=== PATIENT | male | born 1955 | race Caucasian/White ===

== ENCOUNTER 2024-06-26 12:58 | Emergency (ER) | payer MEDICARE, OTHER, SELFPAY ==
[2024-06-26 13:05] VITALS: BP 129/100
--- NOTE | 2024-06-26 13:06 | ED.GENMED ---
ED Provider Triage
<Johanna Blount QUALITATIVE RESEARCHER - Last Filed: 06/26/24 13:14>
-
Patient seen by provider in Triage?: Seen in Triage
Attestation: A medical screening examination has been initiated by a qualified medical provider. Based on the assessment performed at this time, it has been determined that an emergent medical condition may exist and the patient has been informed
that further medical evaluation and possible additional diagnostic testing may be needed.
HPI: 69-year-old male with history of high blood pressure, stage III kidney disease, CAD, IDDM, CABG, pectoral flap, pulmonary fibrosis, carotid endarterectomy, presents now for for abdominal pain, diarrhea. abdominal pain started approximately 10
days ago and the diarrhea started shortly after has had 3-5 episodes of diarrhea daily until yesterday which was only 1 or 2 and today he has had no diarrhea so far. Had a formed bowel movement today, no belly pain at this moment.
States 'this is the best I've felt.'
Travelled to [place] 06/03-06/13. No known sick contacts.
Denies fever/chills.
For a self diagnosed L 5th finger infection, started Augmentin 500 mg BID for 4 days last dose 06/21.
GENERAL: Alert , in no apparent distress
EYE: No visual abnormalities.
NECK: Trachea midline
ENT: No visible abnormalities.
LUNGS: No acute respiratory distress
NEUROLOGICAL: Alert and oriented
SKIN: Skin intact. No visible changes.
MUSCULOSKELETAL: Moving extremities normally
PSYCH: Normal and appropriate interaction.
This is a medical evaluation conducted in person to initiate diagnostic evaluation and provide initial therapeutics. Please see further documentation by the treating clinician.
History of Present Illness
<Johanna Blount QUALITATIVE RESEARCHER - Last Filed: 06/26/24 13:14>
General
Chief Complaint: Abdominal Pain
Time Seen by Provider: 06/26/24 14:45
<Juliano Catherine DO - Last Filed: 12/16/24 17:31>
General
Source: patient, records and spouse
Exam Limitations: none
Nursing documentation reviewed up to this point in time: agreed with
History of Present Illness
History of Present Illness:
Patient is a 69-year-old male who presents to the emergency department complaining of 2 weeks of lower abdominal pain with liquidy diarrhea 3-4 times a day. No blood or mucus. Patient was on Augmentin for few days but this was after the diarrhea
had started. Patient states today the pain is less and had a formed stool today. Patient went to urgent care and was found to have an elevated white count as well as a BUN and creatinine . Patient was then sent to the emergency department.
Patient states he actually has no pain now and is feeling better. Patient was on antibiotics after the symptoms started 2 weeks ago for redness in the finger. Patient is diabetic and his sugars have been running normal. Patient denies any nausea
or vomiting. Patient denies any symptoms. Patient denies any chest pain, shortness of breath or palpitations. Patient denies any upper respiratory type symptoms.
Past History
<Johanna Blount QUALITATIVE RESEARCHER - Last Filed: 06/26/24 13:14>
Past History
ED Past Medical History: CAD, HTN, NIDDM, Renal failure and Other (covid)
ED Past Surgical History: None, Cardiac and Orthopedic
Social History
Tobacco: Former smoker
Alcohol: Occasional
Drug: None
Personal:
Living: with family
Employment: Disabled
Family History
Family History: Diabetes
Review of Systems
<Juliano Catherine DO - Last Filed: 06/26/24 17:31>
Review of Systems
All Other Systems: ROS reviewed and negative except as documented in HPI and ROS
Constitutional: Reports no symptoms
EENT: Reports no symptoms
Respiratory: Reports no symptoms
Cardiac: Reports no symptoms
ABD/GI: Reports abdominal pain and diarrhea; Denies nausea, vomiting, bloody stools or black stools
: Reports no symptoms
Musculoskeletal: Reports no symptoms
Skin: Reports no symptoms
Neurological: Reports no symptoms
Hematologic/Lymphatic: Reports no symptoms
Psychiatric: Reports no symptoms
Phy Exam
<Juliano Catherine DO - Last Filed: 06/26/24 17:31>
Physical Exam
Physical Exam:
Physical Exam
General: No apparent distress, alert and appropriate, well nourished, well hydrated
HENT: Normocephalic, supple with no lymphadenopathy, no thyromegaly
Eyes: Clear sclera, conjuctiva without injection
Heart: Regular rhythm and rate. No S3, S4. No murmur. No NVD
Lungs: No respiratory distress, no stridor, lung sounds clear and equal bilaterally
Abdomen: Soft, minimal lower abdominal tenderness without guarding or rebound, no organomegaly, no CVA tenderness, BS good
Neuro: Alert and oriented x 3, CN II - XII intact, no motor focality, no cerebellar dysfunction
Skin: no rash
Psychiatric: well kept. interactive and cooperative
Extremities: No edema, cyanosis, tenderness, Good and equal peripheral pulses.
Scores
<Juliano Catherine DO - Last Filed: 06/26/24 17:31>
Heart Failure Risk
Heart Failure Risk Score: Not Applicable
Heart Score for Chest Pain Patients
STEMI patient?: Not applicable
Withdrawal Assessment of Alcohol
Withdrawal Assessment Completed?: Not applicable
Course
<Johanna Blount, QUALITATIVE RESEARCHER - Last Filed: 06/26/24 13:14>
Orders/Labs/Results
Orders:
Orders
06/26/24 13:11
Norovirus by PCR Urgent
[facility] Source: Feces/Stool
Specimen Description:
STOOL [C difficile Antigen & Toxins] Urgent
[facility] Source: Feces/Stool
Specimen Description:
Stool Culture Urgent
[facility]KA Source: Feces/Stool
Specimen Description:
06/26/24 13:19
Complete Blood Count/With Diff Urgent
Comprehensive Metabolic Panel Urgent
Lipase Urgent
06/26/24 15:13
CT Abd/pel Without Iv Or Oral Urgent
Comment:
Reason For Exam: renal insufficiency BMI >30 lower abd pain with di
0.9% Sodium Chloride 1000 ml [Nss] 1,000 ml IV BOLUS
Abnormal Lab Results
06/26/24
13:19
WBC 15.2 H 10^3/uL
(4.8-10.8)
MCHC 32.9 L g/dL
(33.0-37.0)
RDW 15.5 H %
(11.5-14.5)
Abs Immat Gran (auto) 0.2 H 10^3/uL
(0-0.05)
Absolute Neuts (auto) 8.8 H 10^3/uL
(1.4-6.5)
Absolute Monos (auto) 0.9 H 10^3/uL
(0.1-0.6)
Absolute Eos (auto) 3.2 H 10^3/uL
(0-0.7)
Immature Gran % 1.4 H %
(0-0.5)
Lymphocytes % 13.3 L %
(20.5-51.1)
Eosinophils % 20.9 H %
(0-6)
Carbon Dioxide 21 L mmol/L
(22-30)
BUN 53 H mg/dl
(9-20)
Creatinine 3.8 H mg/dL
(0.7-1.3)
Glucose 106 H mg/dl
(70-99)
06/26/24 13:19
06/26/24 13:19
Vital Signs
Initial and Last Documented VS:
Initial Vital Signs
Temp Pulse Resp BP Pulse Ox
98.5 F 94 18 129/100 99
06/26/24 13:05 06/26/24 13:05 06/26/24 13:05 06/26/24 13:05 06/26/24 13:05
Last Documented Vital Signs
Temp Pulse Resp BP Pulse Ox
98.5 F 94 18 106/75 100
06/26/24 13:05 06/26/24 13:05 06/26/24 13:05 06/26/24 15:16 06/26/24 16:00
<Juliano Catherine, DO - Last Filed: 06/26/24 17:31>
Orders/Labs/Results
Orders:
Orders
06/26/24 13:11
Norovirus by PCR Urgent
[facility] Source: Feces/Stool
Specimen Description:
STOOL [C difficile Antigen & Toxins] Urgent
[facility]KA Source: Feces/Stool
Specimen Description:
Stool Culture Urgent
TIKA Source: Feces/Stool
Specimen Description:
06/26/24 13:19
Complete Blood Count/With Diff Urgent
Comprehensive Metabolic Panel Urgent
Lipase Urgent
06/26/24 15:13
CT Abd/pel Without Iv Or Oral Urgent
Comment:
Reason For Exam: renal insufficiency BMI >30 lower abd pain with di
0.9% Sodium Chloride 1000 ml [Nss] 1,000 ml IV BOLUS
Abnormal Lab Results
06/26/24
13:19
WBC 15.2 H 10^3/uL
(4.8-10.8)
MCHC 32.9 L g/dL
(33.0-37.0)
RDW 15.5 H %
(11.5-14.5)
Abs Immat Gran (auto) 0.2 H 10^3/uL
(0-0.05)
Absolute Neuts (auto) 8.8 H 10^3/uL
(1.4-6.5)
Absolute Monos (auto) 0.9 H 10^3/uL
(0.1-0.6)
Absolute Eos (auto) 3.2 H 10^3/uL
(0-0.7)
Immature Gran % 1.4 H %
(0-0.5)
Lymphocytes % 13.3 L %
(20.5-51.1)
Eosinophils % 20.9 H %
(0-6)
Carbon Dioxide 21 L mmol/L
(22-30)
BUN 53 H mg/dl
(9-20)
Creatinine 3.8 H mg/dL
(0.7-1.3)
Glucose 106 H mg/dl
(70-99)
06/26/24 13:19
06/26/24 13:19
Vital Signs
Initial and Last Documented VS:
Initial Vital Signs
Temp Pulse Resp BP Pulse Ox
98.5 F 94 18 129/100 99
06/26/24 13:05 06/26/24 13:05 06/26/24 13:05 06/26/24 13:05 06/26/24 13:05
Last Documented Vital Signs
Temp Pulse Resp BP Pulse Ox
98.5 F 94 18 106/75 100
06/26/24 13:05 06/26/24 13:05 06/26/24 13:05 06/26/24 15:16 06/26/24 16:00
<Juliano Catherine, DO - Last Filed: 06/26/24 17:31>
*Radiology
Radiology exam reviewed: radiology read reviewed
*Pulse Oximetry
Patient hypoxic: no
*EKG
Interpreted by ED Provider?: NA
*Honing Machine Set Up Operator Interpretation
Rate: Honing Machine Set Up Operator- N/A
*Critical Care Note
Total Time (30-74mins, 75-104mins- exclusive of procedures): Not Applicable
ED Attending Note
<Johanna Blount QUALITATIVE RESEARCHER - Last Filed: 06/26/24 13:14>
-
Portions of this chart may have been created with voice recognition software.� Occasional wrong word or��sound alike� substitutions may have occurred due to the inherent limitations of voice recognition software.
Discharge Plan
Departure
Patient Disposition: Home (Routine Discharge)
Date of Disposition: 06/26/24
Time of Disposition: 17:30
Patient with high blood pressure during this ER visit?: No
Condition: Good
Covid-19: Not Applicable
Discharge Problem:
Acute diarrhea
Instructions: Diarrhea in teens and adults, [place] diet
Prescriptions:
No Action
furosemide 40 mg tablet
40 mg PO BID
promethazine-DM 6.25-15 mg/5 mL syrup
5 ml PO QID PRN (Reason: cough)
carvedilol 25 mg tablet
25 mg PO BID
amlodipine 5 mg tablet
5 mg PO DAILY
ferrous sulfate 325 mg (65 mg iron) tablet
325 mg PO BID
metformin 1,000 mg tablet
1,000 mg PO HS
losartan 25 mg tablet
25 mg PO DAILY
gabapentin 100 mg capsule
300 mg PO HS
melatonin 3 mg tablet
3 mg PO HS
pantoprazole 40 mg tablet,delayed release (DR/EC)
40 mg PO HS
ezetimibe 10 mg tablet
10 mg PO HS
insulin aspart U-100 [Novolog FlexPen U-100 Insulin] 100 unit/mL (3 mL) insulin pen
35 unit SC AC
cholecalciferol (vitamin D3) 25 mcg (1,000 unit) tablet
1,000 units PO DAILY
multivitamin with folic acid [Tab-A-Blanquita] 400 mcg tablet
1 tab PO DAILY
doxycycline hyclate 100 mg Capsule
100 mg PO Q12 3 Days Qty: 6 0RF
guaifenesin 600 mg Tablet Extended Release 12hr
600 mg PO Q12 5 Days Qty: 10 0RF
cefdinir 300 mg capsule
300 mg PO Q12H Qty: 6 0RF
sodium bicarbonate 650 mg tablet
650 mg PO BID Qty: 10 0RF
insulin glargine U-300 conc 300 unit/mL (3 mL) Insulin Pen
20 - 30 unit SC HS
aspirin 81 mg Tablet,Delayed Release (Dr/Ec)
81 mg PO DAILY Qty: 30 0RF
rosuvastatin 40 mg Tablet
40 mg PO HS Qty: 30 0RF
Spiriva Respimat 2.5 mcg/actuation Mist
2 puff inhalation R DAILY Qty: 1 0RF
Referrals:
Adeola Almeida MD [Family Provider] - Follow up in 5-7 days
Activity Restrictions/Additional Instructions:
Make sure to drink plenty of fluids. Continue present medications and therapy.
Interventions
Interventions:
*Risk Screen - Suicide Last Done: 06/26/24 13:05
*General Assessment Last Done: 06/26/24 13:05
*Neglect/Abuse Screening Last Done: 06/26/24 13:05
*ED COVID-19 Vaccine History Last Done: 06/26/24 15:13
IB-Magngc-Ohebruhvwn Assessment Last Done: 06/26/24 15:21
Discharge Date and Time
Print Language: TAJIK
[2024-06-26 13:38] LABS: Hematocrit 42.8 % (39.0-52.0); Hemoglobin 14.1 g/dL (13.0-18.0); Mean Corp Hgb Conc. 32.9 g/dL (33.0-37.0); Mean Corpuscular Hgb 29.1 pg (27.0-31.0); Mean Corpuscular Volume 88.2 fL (80.0-94.0); Mean Platelet Volume 9.6 fL (7.4-10.4); Platelet Count 311 10^3/uL (130-400); Red Blood Cell Count 4.85 10^6/uL (4.70-6.10); Red Cell Dist. Width 15.5 % (11.5-14.5); White Blood Cell Count 15.2 10^3/uL (4.8-10.8)
[2024-06-26 13:44] LABS: ALT (SGPT) 15 U/L (0-50); AST (SGOT) 21 U/L (17-59); Alkaline Phosphatase 73 U/L (38-126); Blood Urea Nitrogen 53 mg/dl (9-20); Calcium 9.5 mg/dl (8.4-10.2); Carbon Dioxide 21 mmol/L (22-30); Chloride 107 mmol/L (98-107); Glucose 106 mg/dl (70-99); Lipase 76 U/L (23-300); Sodium 140 mmol/L (135-145); Total Bilirubin 0.2 mg/dl (0.2-1.3); Total Protein 6.6 g/dl (6.3-8.2); eGFR 16.42
[2024-06-26 14:16] LABS: % Basophils 0.5 % (0-2); % Eosinophils 20.9 % (0-6); % Immature Granulocytes 1.4 % (0-0.5); % Lymphocytes 13.3 % (20.5-51.1); % Monocytes 6.2 % (1.7-9.3); % Neutrophils 57.7 % (42.2-75.2); Absolute Basophils 0.1 10^3/uL (0-0.2); Absolute Eosinophils 3.2 10^3/uL (0-0.7); Absolute Immature Granulocytes 0.2 10^3/uL (0-0.05); Absolute Monocytes 0.9 10^3/uL (0.1-0.6); Absolute Neutrophils 8.8 10^3/uL (1.4-6.5); Nucleated Red Blood Cells % 0 % (-)
[2024-06-26 15:16] VITALS: BP 106/75
[2024-06-26] MEDS: NSS 1000 IV (15:22)
== END 2024-06-26 17:44 | disposition home or self-care (01) ==
LOC: EMR 12:58
PROVIDERS: Registered Nurse; EMERGENCY PHYSICIAN Emergency Medicine; FAMILY PHYSICIAN Family Medicine
DX: R19.7 Diarrhea, unspecified (principal); I12.9 Hypertensive chronic kidney disease with stage 1 through stage 4 chronic kidney disease, or unspecified chronic kidney disease; E11.9 Type 2 diabetes mellitus without complications; I25.10 Atherosclerotic heart disease of native coronary artery without angina pectoris; N18.30 Chronic kidney disease, stage 3 unspecified; Z87.891 Personal history of nicotine dependence
CPT/HCPCS: 99284; 96360; 74176; 80053; 83690; 85025

== ENCOUNTER 2024-07-12 03:55 | Inpatient (IN) | payer MEDICARE, OTHER, SELFPAY ==
[2024-07-11 22:50] VITALS: BP 130/90
[2024-07-11 23:03] VITALS: BP 179/78
[2024-07-11 23:19] VITALS: BMI 33.1
[2024-07-11 23:48] VITALS: BP 183/85
[2024-07-11] MEDS: LOW STRENGTH ASPIRIN 324 MG PO (23:52)
[2024-07-11] MEDS: ZOFRAN 4 MG IV (23:52)
[2024-07-11 23:59] LABS: Glucose - Point of Care 213 mg/dl (70-99)
[2024-07-12] VITALS (14 sets, daily range): BP systolic 141–187; BP diastolic 52–95; BMI 33.4
[2024-07-12 00:09] LABS: % Basophils 1.5 % (0-2); % Eosinophils 14.3 % (0-6); % Immature Granulocytes 0.3 % (0-0.5); % Lymphocytes 17.6 % (20.5-51.1); % Monocytes 8.4 % (1.7-9.3); % Neutrophils 57.9 % (42.2-75.2); Absolute Basophils 0.1 10^3/uL (0-0.2); Absolute Eosinophils 1.1 10^3/uL (0-0.7); Absolute Lymphocytes 1.3 10^3/uL (1.2-3.4); Absolute Monocytes 0.6 10^3/uL (0.1-0.6); Absolute Neutrophils 4.3 10^3/uL (1.4-6.5); Hematocrit 41.1 % (39.0-52.0); Hemoglobin 13.5 g/dL (13.0-18.0); Mean Corp Hgb Conc. 32.8 g/dL (33.0-37.0); Mean Corpuscular Hgb 29.2 pg (27.0-31.0); Mean Platelet Volume 9.8 fL (7.4-10.4); Nucleated Red Blood Cells % 0 % (-); Platelet Count 284 10^3/uL (130-400); Red Blood Cell Count 4.62 10^6/uL (4.70-6.10); Red Cell Dist. Width 15.1 % (11.5-14.5); White Blood Cell Count 7.4 10^3/uL (4.8-10.8)
[2024-07-12 00:24] LABS: INR 0.94
[2024-07-12 00:25] LABS: APTT 32.4 Sec (23.4-35.0)
[2024-07-12 00:26] LABS: ALT (SGPT) 19 U/L (0-50); AST (SGOT) 31 U/L (17-59); Albumin 4.2 g/dl (3.5-5.0); Alkaline Phosphatase 72 U/L (38-126); Blood Urea Nitrogen 40 mg/dl (9-20); Calcium 9.4 mg/dl (8.4-10.2); Carbon Dioxide 19 mmol/L (22-30); Chloride 107 mmol/L (98-107); Estimated Creatinine Clearance 31 ml/min; Glucose 247 mg/dl (70-99); Potassium 4.5 mmol/L (3.5-5.1); Sodium 139 mmol/L (135-145); Total Bilirubin 0.3 mg/dl (0.2-1.3); Total Protein 6.9 g/dl (6.3-8.2); eGFR 27.13
[2024-07-12 00:37] LABS: NT-proBNP 1110 pg/ml; Troponin I 0.023 ng/ml
--- NOTE | 2024-07-12 00:42 | ED.GENMED ---
History of Present Illness
General
Chief Complaint: Chest Pain
Time Seen by Provider: 07/11/24 23:18
History of Present Illness
History of Present Illness:
69-year-old male with history of CAD status post stenting and CABG, chronic kidney disease, interstitial fibrosis, CHF, hypertension, hyperlipidemia, diabetes presenting for acute onset of chest pain and difficulty breathing. Patient reports
symptoms started prior to arrival, midsternal with associated nausea. Does feel like his symptoms are similar to prior cardiac events. Reports that last cardiac event was about 2 and half years ago. He takes aspirin, no Plavix or Brilinta.
Reports that he had decreased p.o. intake today, did not want to eat prior to arrival because he was not feeling well. Denies weakness or numbness to his extremities. Denies additional acute medical complaints
Past History
Past History
ED Past Medical History: CAD, HTN, NIDDM, Renal failure and Other (covid)
ED Past Surgical History: None, Cardiac and Orthopedic
Social History
Tobacco: Former smoker
Alcohol: Occasional
Drug: None
Personal:
Living: with family
Employment: Disabled
Family History
Family History: Diabetes
Phy Exam
Physical Exam
Physical Exam:
General: Uncomfortable in appearance
HEENT: protecting airway
Neck: appears supple
CV: Normal heart rate, regular rhythm
Resp: No accessory muscle use, no increased work of breathing, lungs clear to auscultation bilaterally
Abd: Soft and non-distended, no tenderness to palpation
Extremities: No deformities, no swelling, no erythema
Neuro: alert, no focal neurologic deficit
: deferred
Rectal: deferred
Psych: Normal affect
Skin: Intact
Scores
Heart Score for Chest Pain Patients
STEMI patient?: No
History: Highly Suspicious
ECG: Nonspecific Repolarization
Age: >/= 65 years
Risk Factors: >/= 3 Risk Factors or History of CAD
Troponin: </= Normal Limit
Heart Score for Chest Pain Patients: 7
Heart Score Risk: 72.7 % MACE over next 6 weeks
Course
Orders/Labs/Results
Orders:
Orders
07/11/24 22:46
ECG [Electrocardiogram (*1)] Urgent
Reason for Study: Chest Pain
EKG- Treatment ONCE
07/11/24 23:28
Electrocardiogram (*1) Stat
Reason for Study: Other
Other Reason for Exam: chest pain
EKG- Treatment ONCE
Aspirin Chewable [Low Strength Aspirin] 324 mg PO NOW STA
Nitroglycerin Sublingual [Nitrostat (Sublingual)] 0.4 mg SL [id number] PRN
07/11/24 23:34
Ondansetron Injectable [Zofran] 4 mg IV NOW STA
07/11/24 23:48
Complete Blood Count/With Diff Urgent
Comprehensive Metabolic Panel Urgent
NT-proBNP Urgent
PTT Urgent
Prothrombin Time Urgent
Troponin I Q3H
07/12/24 00:00
CR Chest - 2 Views Urgent
Reason For Exam: cp, sob
07/12/24 00:46
Morphine Sulfate 4 mg IV NOW STA
07/12/24 00:59
Troponin I Q3H
07/12/24 01:01
US Abdomen Complete/Upper Urgent
Reason For Exam: chest pain/epigastric pain, hx stones
07/12/24 01:03
Famotidine [Pepcid] 20 mg IV NOW STA
07/12/24 01:04
Ondansetron Injectable [Zofran] 4 mg IV NOW STA
07/12/24 01:44
Heparin 4,000 units IV NOW STA
Nursing to Place Non Medication Order As Directed
Physician Order: PTT 6 hours after initial start of Heparin infusion
Above order entered?: Yes
07/12/24 02:56
Morphine Sulfate 2 mg IV NOW STA
07/12/24 03:00
Heparin 22644 Units/250 ml 25,000 units in 250 ml IV PER PROTOCOL
Weight to be used for heparin protocol in kilograms (kg):: 95.9
Protocol:: Cardiac Tx/Acute Coronary
PTT Goal Range to be used:: PTT 73 to 111 seconds
Order type:: Initial
INITIAL Infusion Dose (UNITS/KG/hr) & then follow protocol:: 12 units/kg/hr
Infusion Dose in UNITS/hr & then follow protocol (UNITS/hr):: 1,000
INFUSION RATE in mL/hr & then follow protocol (mL/hr):: 10
PTT less than or equal to 64 seconds:: Increase rate by 200 units/hr (+ 2 mL/hr)
PTT 64.1 to 72.9 seconds:: Increase rate by 100 units/hr (+ 1 mL/hr)
PTT 73 to 111 seconds:: Target Range. No change in rate.
PTT 111.1 to 130.9 seconds:: Decrease rate by 100 units/hr (- 1 mL/hr)
PTT 131 to 199.9 seconds:: HOLD for 1 hr. Then decrease rate by 200 units/hr (- 2 mL/hr)
PTT greater than or equal to 200 seconds:: HOLD for 2 hrs & Notify Provider. Then decrease by 200 units/hr (-
2 mL/hr)
Lab follow-up:: Each change, PTT q6h until 2 consecutive are therapeutic. Then PTT
daily.
07/12/24 03:09
Lactic Acid Urgent
07/12/24 03:32
Admit/Transfer Patient As Directed
Co-Sign Provider:
Level of Care: Inpatient admission
Assign to:: Telemetry
Physician / Group: Deshaun
Diagnosis: Abd Pain, ACS
Reason for Telemetry: Chest Pain syndromes
Date to Stop Telemetry: 07/14/24
Time to Stop Telemetry: 11:00
Reason for Hospitalization: Abd Pain, ACS
Expected length of stay greater than two midnights?: Yes
ELOS- Estimated Length of Stay in days: 3
I certify the patient meets the requirements for IP care: Yes
PRN Pain Medication Management As Directed
May give lesser potent ordered pain med per pt: Yes
preference::
Protocol:: Medication orders for pain may be administered in a
manner that supports deferring to patient preference
when the pt is:
- Requesting an ordered lesser potent pain medication.
Least to most potent pain medications are defined
as: acetaminophen < NSAID < tramadol < opioids
(morphine, oxycodone, hydromorphone).
- Requesting a lesser dose of the same medication IF
ORDERED.
- Requesting a less intrusive route of administration
if both routes are prescribed by the provider (PO <
IV).
07/12/24 03:35
Code Status As Directed
Resuscitation Status: Full Code
07/12/24 04:55
Acetaminophen [Tylenol] 650 mg PO Q4HPRN PRN
Albuterol Nebs [Ventolin Nebules] 2.5 mg INH R Q4HPRN PRN
Dextrose 50%-Water [Dextrose 50% Syringe] 12.5 grams IV [id number] PRN
Glucagon [GlucaGen] 1 mg IM PRN PRN
HYDROmorphone [Dilaudid] 0.5 mg IV Q4HPRN PRN
Nitroglycerin Sublingual [Nitrostat (Sublingual)] 0.4 mg SL [id number] PRN
Ondansetron Injectable [Zofran] 4 mg IV Q6HPRN PRN
07/12/24 04:55
CARDIOLOGY CONSULT Routine
Consulting Provider: Juliano Rucker
Was physician already notified: No
Reason for consult: Chest Pain / Abnormal Trop
Consult Notification Routine
Specialty to Notify: Cardiology
Date consulting provider notified: 07/12/24
Time consulting provider notified: 06:50
Notified:: Provider
Comment: tiger text
SURGICAL CONSULT Routine
Consulting Provider: Jesus Samaniego
Was physician already notified: No
Reason for consult: Cholelithiasis
Heparin Protocol- PTT Orders As Directed
PTT per Heparin protocol: -Obtain CBC and baseline PTT - if not already collected.
-Obtain PTT 6 hours from start of infusion. Then, every 6 hours until 2 consecutive
PTT's are therapeutic. Then, PTT Daily.
-With each rate change, obtain PTT every 6 hours until 2 consecutive PTT's are
therapeutic. Then, PTT Daily.
Activity As Directed
Activity Level: Ambulate
With Assistance
Bedside Glucose Monitoring As Directed
Frequency: AC&HS
Additional Instructions:: Change to q6h if pt on TPN, tube feeding or not eating
Bladder Scan As Directed
Follow Bladder Retention/Intermittent Cath Algorithm?: Yes
PRN if no void in __ hours: 6
Frequency: Per Retention Algorithm
If Bladder Scan Result >: 400
then:: Straight cath
EKG with chest pain [ECG as needed] As Directed
ECG as needed for:: Chest Pain
I/O [Intake/ Output] As Directed
Frequency: Per unit guidelines
Notify MD As Directed
Notify physician if: PTT is greater than or equal to 200.
Straight Cath As Directed
Frequency: Per Retention Algorithm
Additional Instructions: straight cath as needed per acute urinary retention algorithm for 24 hrs
Additional Instructions: for bladder scan greater than 400 mL
Vital Signs As Directed
Frequency: Per unit guidelines
Weight As Directed
Frequency: Daily
Oxygen Therapy [O2 Therapy] [RESP] Routine
Titrate/Wean O2 to maintain O2 sat greater than (%): 94
07/12/24 05:43
Cardiovascular Evaluation IN AM
Glycohemoglobin (HgbA1c) IN AM
Troponin I Q6H
07/12/24 06:00
EKG [Electrocardiogram (*1)] IN AM
Reason for Study: Chest Pain
NPO
Allow oral meds: Yes
Allow clear liquids: Sips of Clears
07/12/24 07:30
Insulin Aspart Corrective Low [Novolog Flexpen-Low Resistance] See Protocol SC AC
07/12/24 07:32
Consult Notification Routine
Specialty to Notify: Surgical
Date consulting provider notified: 07/12/24
Time consulting provider notified: 07:31
Notified:: Provider
07/12/24 08:00
Amlodipine [Norvasc] 5 mg PO DAILY
Aspirin Chewable [Low Strength Aspirin] 81 mg PO DAILY
Losartan [Cozaar] 25 mg PO DAILY
Pantoprazole [Protonix IV] 40 mg IV DAILY
Tiotropium [place] 2.5 Mcg [Spiriva Respimat 2.5 Mcg] 2 puff INH R DAILY
07/12/24 10:13
PTT Urgent
Prothrombin Time Urgent
Is patient on Coumadin/Warfarin?: No
Troponin I Q6H
07/12/24 22:00
Gabapentin [Neurontin] 300 mg PO HS
Rosuvastatin Calcium [Crestor] 40 mg PO HS
07/14/24 06:00
Complete Blood Count/No Diff Q2D
Comment: notify provider: Platelet count < 130,000 or decrease by 50% from baseline
07/14/24 11:00
DC Protocol for Telemetry ONCE
07/16/24 06:00
Complete Blood Count/No Diff Q2D
Comment: notify provider: Platelet count < 130,000 or decrease by 50% from baseline
07/18/24 06:00
Complete Blood Count/No Diff Q2D
Comment: notify provider: Platelet count < 130,000 or decrease by 50% from baseline
07/20/24 06:00
Complete Blood Count/No Diff Q2D
Comment: notify provider: Platelet count < 130,000 or decrease by 50% from baseline
07/22/24 06:00
Complete Blood Count/No Diff Q2D
Comment: notify provider: Platelet count < 130,000 or decrease by 50% from baseline
07/24/24 06:00
Complete Blood Count/No Diff Q2D
Comment: notify provider: Platelet count < 130,000 or decrease by 50% from baseline
07/26/24 06:00
Complete Blood Count/No Diff Q2D
Comment: notify provider: Platelet count < 130,000 or decrease by 50% from baseline
07/28/24 06:00
Complete Blood Count/No Diff Q2D
Comment: notify provider: Platelet count < 130,000 or decrease by 50% from baseline
Abnormal Lab Results
07/11/24 07/11/24 07/12/24
23:48 23:57 00:59
RBC 4.62 L 10^6/uL
(4.70-6.10)
MCHC 32.8 L g/dL
(33.0-37.0)
RDW 15.1 H %
(11.5-14.5)
Absolute Eos (auto) 1.1 H 10^3/uL
(0-0.7)
Lymphocytes % 17.6 L %
(20.5-51.1)
Eosinophils % 14.3 H %
(0-6)
Carbon Dioxide 19 L mmol/L
(22-30)
BUN 40 H mg/dl
(9-20)
Creatinine 2.5 H mg/dL
(0.7-1.3)
Glucose 247 H mg/dl
(70-99)
Troponin I 0.037 H* D ng/ml
POC Glucose 213 H mg/dl
(70-99)
07/11/24 23:48
07/11/24 23:48
Vital Signs
Initial and Last Documented VS:
Initial Vital Signs
Temp Pulse Resp BP Pulse Ox
97.4 F 104 28 130/90 97
07/11/24 22:50 07/11/24 22:50 07/11/24 22:50 07/11/24 22:50 07/11/24 22:50
Last Documented Vital Signs
Temp Pulse Resp BP Pulse Ox
98.1 F 102 18 141/71 98
07/13/24 11:00 07/13/24 11:00 07/13/24 11:00 07/13/24 11:00 07/13/24 11:00
MDM/Problems Addressed
MDM/Problems Addressed:
69-year-old male with significant coronary history presenting for chest pain and difficulty breathing, acute onset. Vital signs on arrival significant for mild tachycardia and tachypnea.
On exam, patient is uncomfortable in appearance, and during evaluation, started to have emesis. Initial EKG without STEMI criteria, without significant change from prior. EKG soon repeated to ensure no interval changes. Again no STEMI criteria.
Will administer aspirin and nitro for concern of ACS. Plan for laboratory analysis including troponin, as well as chest x-ray imaging. Patient high risk for cardiac event given his history, will plan for admission.
01:00 - Patient stable, mildly hypertensive. Pain is improved. Troponin detectable, however within normal limits. Again given patient's significant cardiac history, feel patient warrants admission for continued cardiac monitoring and troponin
trending. Patient agreeable to plan. Of note, patient does have history of gallstones, has some epigastric discomfort. Gastric component to symptoms is also consideration. No leukocytosis, no transaminitis. Will screen with ultrasound imaging
of the gallbladder.
01:45- second troponin has bumped up. Will start on heparin for NSTEMI
03:00 -ultrasound shows stone in the neck of the gallbladder, which could be etiology of patient's symptoms. Plan for additional surgical consultation during admission
*EKG
Interpreted by ED Provider?: Yes
EKG Intrepretation Date: 07/11/24
Interpretation: normal
Comparison EKG: no changes (10/20/22)
Heart Rate: 108
Rate: normal
Rhythm: sinus
Williams: normal axis
Interval: normal interval
QRS Pattern: normal QRS
Ischemia: non-specific ST changes
*Critical Care Note
Total Time (30-74mins, 75-104mins- exclusive of procedures): 37
comment:
The high probability of a clinically significant, sudden or life threatening deterioration of the cardiovascular system(s) required my full and direct attention, intervention and personal management. The aggregate critical care time was 37 minutes.
This time is in addition to time spent performing reported procedures but includes the following:
[x] Data Review and interpretation
[x] Patient assessment and monitoring of vital signs
[x] Documentation
[x] Medication orders and management
ED Attending Note
-
Portions of this chart may have been created with voice recognition software.� Occasional wrong word or��sound alike� substitutions may have occurred due to the inherent limitations of voice recognition software.
Discharge Plan
Departure
Patient Disposition: Admit
Date of Disposition: 07/12/24
Time of Disposition: 01:46
Presentation/result/management discussed w/ accepting MD/DO: Hospitalist
Condition: Fair
Discharge Problem:
Chest pain, Non-ST elevation OH (NSTEMI)
Interventions
Interventions:
*Risk Screen - Suicide Last Done: 07/11/24 23:08
*General Assessment Last Done: 07/11/24 23:08
*Neglect/Abuse Screening Last Done: 07/11/24 23:08
ED- Fall Risk Assessment Last Done: 07/11/24 23:08
*ED COVID-19 Vaccine History Last Done: 07/11/24 23:08
*Nursing Disposition Last Done: 07/12/24 04:38
ED- Cardiac Assessment Last Done: 07/11/24 23:08
Discharge Date and Time
Discharge Date/Time: 07/12/24 04:38
[2024-07-12] MEDS: MORPHINE SULFATE 4 MG IV (00:51)
[2024-07-12 01:42] LABS: Troponin I 0.037 ng/ml
[2024-07-12] MEDS: ZOFRAN 4 MG IV ×2 (02:45→05:19)
[2024-07-12] MEDS: HEPARIN 4000 UNITS IV (02:45)
[2024-07-12] MEDS: PEPCID 20 MG IV (02:45)
--- NOTE | 2024-07-12 02:57 | HPS.HSE ---
Family Physician
-
Family Physician: Oswaldo Gandhi
Chief Complaint
-
Abdominal Pain
History of Present Illness
Patient is a 69y M with PMH significant for ASCVD, IPF and DM-II who presents to ED complaining of abdominal pain. History obtained from patient and his at the bedside. Patient notes that he ate some egg salad and potato salad this evening
for dinner. An hour or two later, he developed epigastric abdominal pain that became quite severe. He states that pain radiated across his upper abdomen and into his mid-back. He had nausea with 2 episodes of non-bloody emesis. He denies any
fevers, chills, diarrhea, bloody stools. He was noted to be in moderate discomfort and diaphoretic when he presented to the ED for evaluation.
Patient notes that some of his current symptoms are similar to prior cardiac events.
He was seen here in the ED on 06/26 with diarrhea and abdominal discomfort. CT done at that time showed many, small gallstones without other significant abnormality.
Patient notes that he has felt well since that time.
Medical History
Past Medical History
Past Medical History: Reports Other
Additional Past Medical History:
ASCVD
Hypertension
Aortic Stenosis s/p AVR
CKD III
DM-II
Pulmonary Fibrosis
Right Acoustic Neuroma
Past Surgical History: Reports Other
Additional Past Surgical History:
CABG x 3 / Porcine AVR
PTCA with Stents x 2
Right CEA
Sinus Surgery
Carpal Tunnel Surgery
Social History
Tobacco: Former Smoker (Quit smoking 35 years ago. Approx 10 pack years total use.)
Alcohol: Occasional
Drug: None
Personal:
Living: With Family
Family History
Family History: Not pertinent
Allergies / Home Medications
Allergies reflects when Allergies were last updated in [employer].
Home Medications with original date entered in [employer]
Allergy/Medication List:
Allergies
Allergy/AdvReac Type Severity Reaction Status Date / Time
No Known Allergies Allergy Verified 07/11/24 22:56
Home Medications
rosuvastatin 40 mg tablet 40 mg PO HS #30 tabs 01/30/22
tiotropium bromide 2.5 mcg/actuation mist for inhalation (Spiriva Respimat) 2 puff inhalation R DAILY #1 ea 01/30/22
amlodipine 5 mg tablet 5 mg PO DAILY Blood pressure 10/20/22
ezetimibe 10 mg tablet 10 mg PO HS High cholesterol 10/20/22
furosemide 40 mg tablet 40 mg PO BID Fluid retention/Swelling 10/20/22
gabapentin 100 mg capsule 300 mg PO HS Neurological Condition 10/20/22
insulin aspart U-100 100 unit/mL (3 mL) subcutaneous pen (Novolog FlexPen U-100 Insulin aspart) 30 unit SC AC Diabetes 10/20/22
losartan 25 mg tablet 25 mg PO DAILY Blood pressure 10/20/22
metformin 1,000 mg tablet 1,000 mg PO HS Diabetes 10/20/22
pantoprazole 40 mg tablet,delayed release 40 mg PO HS Gastrointestinal issue 10/20/22
cholecalciferol (vitamin D3) 25 mcg (1,000 unit) tablet 1,000 units PO DAILY Supplement 10/21/22
multivitamin with folic acid 400 mcg tablet (Tab-A-Blanquita) 1 tab PO DAILY Supplement 10/21/22
fenofibric acid (choline) 135 mg capsule,delayed release (Trilipix) 135 mg PO DAILY 07/12/24
hydroxyzine HCl 25 mg tablet 25 mg PO BID PRN itching 07/12/24
insulin detemir U-100 100 unit/mL (3 mL) subcutaneous pen 20 unit SC HS 07/12/24
Review of Systems
-
History Source: Patient
A 12 point ROS was completed and negative except as noted: Yes
Constitutional: Reports Fatigue; Denies Fever or Chills
EENT: Denies Sore Throat
Respiratory: Reports Trouble Breathing (chronic dyspnea - not changed); Denies Cough
Cardiac: Reports Diaphoresis; Denies Chest Pain or Palpitations
Abdomen/GI: Reports Abdominal Pain, Nausea and Vomiting; Denies Diarrhea, Bloody Stools or Anorexia
: Denies Dysuria, Frequency or Flank Pain
Musculoskeletal: Denies Joint Pain or Edema
Neurological: Denies Dizzy or Headache
Psych: Denies Depression or Anxiety
Physical Exam
Vital Signs
Vital Signs
Temp Pulse Resp BP Pulse Ox
97.4 F 90 21 141/66 98
07/11/24 22:50 07/12/24 02:41 07/12/24 02:41 07/12/24 01:30 07/12/24 02:41
Physical Exam
General: Other (69y M in mild distress due to abdominal discomfort.)
HEENT: Moist mucous membranes and PERRLA
Respiratory: Other (Diffuse rales throughout. No wheezes / rhonchi.)
Cardiac: S1/S2, Regular Rhythm and Murmur (II/ ROCHELLE)
GI: Other (Obese. Tenderness across the upper abdomen - most evident in the RUQ. No rebound / guarding. Pos BS.)
Musculoskeletal: No Clubbing, No Cyanosis and No Edema
Neuro: AO x 3
Laboratory Results
-
07/11/24 23:48
07/11/24 23:48
Laboratory Results
PT 13.0 Sec (11.4-14.6) 07/11/24 23:48
INR 0.94 07/11/24 23:48
APTT 32.4 Sec (23.4-35.0) 07/11/24 23:48
Total Bilirubin 0.3 mg/dl (0.2-1.3) 07/11/24 23:48
AST 31 U/L (17-59) 07/11/24 23:48
ALT 19 U/L (0-50) 07/11/24 23:48
Alkaline Phosphatase 72 U/L (38-126) 07/11/24 23:48
Troponin I 0.037 ng/ml H* D 07/12/24 00:59
Impression/Plan
-
A/P: Patient is a69y M with PMH significant for ASCVD, DM-II and IPF who presents to ED complaining of abdominal pain.
Abdominal Pain
- Admit for further evaluation and treatment.
- Etiology is unclear - but seems most c/w symptomatic cholelithiasis / biliary colic.
- US done today shows gallstone potentially impacted in GB neck.
- Pain control / supportive care / NPO.
- Surgery evaluation for additional recommendations.
ASCVD
- Possible that current symptoms are anginal equivalent - though GB origin seems most likely.
- EKG is without acute ischemia. No substernal pain, dyspnea, etc.
- Troponin increased with second set (0.037).
- Continue IV heparin for now with increased troponin and history of heart disease.
- Continue ASA (81mg daily), statin, etc.
- Cardiology evaluation for additional recommendations.
Chronic HFpEF
- Stable. Does not appear volume overloaded.
- Rales chronically on exam due to pulmonary fibrosis.
- Hold Lasix for now.
- Follow I/Os, daily weights, etc.
Benign Hypertension
- Stable. Continue current med regimen with holding parameters.
DM-II
- Stable. Continue basal : bolus insulin - decrease dose while NPO.
Pulmonary Fibrosis
- Stable. Chronic / unchanged dyspnea.
- Continue inhaler regimen. Nebs PRN.
STERLING on CKD III
- SCr = 2.5 with unclear baseline. CKD III per .
- Prior labs with SCr from 1.5 - 3.5.
- Follow for changs over the next 48 hours.
- Hold Lasix acutely.
GERD
- Continue daily PPI
DVT Prophylaxis: On IV Heparin
Code Status: Full
[2024-07-12] MEDS: MORPHINE SULFATE 2 MG IV (03:12)
[2024-07-12] MEDS: HEPARIN 25000 UNITS/250 ML IV (03:16)
[2024-07-12] MEDS: DILAUDID 0.5 MG IV ×2 (05:19→20:21)
--- NOTE | 2024-07-12 05:41 | PTCARENOTE ---
Pt arrived via eD stretcher at 0445. pt was able to ambulate to the bed. pt complains of 9/10 pain (see mar). VSS. heparin gtt infusing. at bedside. oriented to room and call ramos. bed in lowest position and locked.
[2024-07-12 06:34] LABS: Troponin I 0.141 ng/ml
--- NOTE | 2024-07-12 06:46 | PTCARENOTE ---
third troponin elevated. cardiology notified.
[2024-07-12 07:10] LABS: ALT (SGPT) 20 U/L (0-50); AST (SGOT) 35 U/L (17-59); Alkaline Phosphatase 75 U/L (38-126); Blood Urea Nitrogen 39 mg/dl (9-20); Calcium 9.3 mg/dl (8.4-10.2); Carbon Dioxide 16 mmol/L (22-30); Chloride 110 mmol/L (98-107); Direct Bilirubin 0.2 mg/dl (0.0-0.4); Estimated Creatinine Clearance 34 ml/min; Glucose 226 mg/dl (70-99); HDL Cholesterol 48 mg/dl; LDL Cholesterol, Calculated 40 mg/dl; Potassium 5.1 mmol/L (3.5-5.1); Sodium 140 mmol/L (135-145); Total Bilirubin 0.4 mg/dl (0.2-1.3); Total Cholesterol 113 mg/dl (50-199); Total Protein 6.7 g/dl (6.3-8.2); Triglyceride 129 mg/dl (10-149); Very Low Density Lipoprotein 25 mg/dl (0-30); eGFR 29.99
--- NOTE | 2024-07-12 07:15 | W.PN.HOSP.TC ---
Today's Communication/Plan
-
Continue Heparin Drip
Repeat CT Scan to further explain etiology of symptoms
Zosyn for suspected cholecystitis
Assessment / Plan
Assessment / Plan
Physical Exam
General: Not in acute distress
HEENT: Moist mucous membranes
Respiratory: CTAB
Cardiac: S1/S2, Regular Rhythm and Murmur (I/ ROCHELLE)
GI: Other (Obese. Tenderness across the upper abdomen - most evident in the RUQ. No rebound / guarding. Pos BS.)
Musculoskeletal: No Cyanosis. Trace edema bilaterally.
Neuro: AAO x 3
Assessment/Plan
Patient is a 69 y/o male with past medical history significant for ASCVD, DM-II and IPF who presented to ED complaining of abdominal pain.
Abdominal Pain with ongoing nausea and vomiting, diarrhea x 4 weeks
Suspected acute on chronic cholecystitis (most likely) vs. gastritis vs. pancreatitis vs. duodenitis
Cholelithiasis
- Etiology is unclear - but seems most c/w symptomatic cholelithiasis / biliary colic.
- US done showed gallstone potentially impacted in GB neck.
- Pain control / supportive care / NPO.
- Surgery evaluation for additional recommendations.
- Repeat CT scan with oral contrast to check for alternative diagnoses and to help confirm gallbladder as the reason for patient's symptoms
- Surgery is asking to consider pulmonary consultation for risk stratification and aid in management, given patient's pulmonary fibrosis and recent worsening SOB over the previous several weeks (patient sees pulmonary
outpatient)
Coronary artery disease
CABG X 3 and TAVR for 01/06/22 at [facility], complicated by prolonged hospital stay including the development of pericardial effusion and sternal dehiscence requiring pericardial window and myocutaneous flap in January 2022
- Possible that current symptoms are anginal equivalent
- EKG noted with possible ischemia
- Troponin increased mildly
- Continue to trend troponin
- Continue Heparin drip
- Continue ASA (81mg daily), statin, etc.
- Echocardiogram
- Cardiology evaluation for additional recommendations.
Chronic HFpEF
- Stable. Does not appear volume overloaded.
- Rales chronically on exam due to pulmonary fibrosis.
- Hold Lasix for now.
- Follow I/Os, daily weights, etc.
Benign Hypertension
- Stable. Continue current med regimen with holding parameters.
Hyperlipidemia
DM-II
- Stable. Continue basal : bolus insulin - decrease dose while NPO.
Pulmonary Fibrosis
- Stable. Chronic / unchanged dyspnea.
- Continue inhaler regimen. Nebs PRN.
STERLING on CKD III
- SCr = 2.5 with unclear baseline. CKD III per .
- Prior labs with SCr from 1.5 - 3.5.
- Follow for changes over the next 48 hours.
- Hold Lasix acutely.
GERD
- Continue daily PPI
COVID illness in 06/2020 with subsequent long COVID symptoms
Right CEA in 08/2021
DVT Prophylaxis: On IV Heparin
Code Status: Full
This is a non-billable note.
Anticipated Discharge: > 48 hours
Subjective/Interval History
-
Date of Service: July 12, 2024
Patient was seen and examined. He reported some abdominal pain, but no new significant symptoms or complaints.
Objective Data
-
Labs:
Laboratory Results
07/11/24 07/12/24 07/12/24
23:48 05:43 09:20
WBC 7.4
Hgb 13.5
Hct 41.1
Plt Count 284
PT 13.0 Pending
INR 0.94 Pending
APTT 32.4 Pending
Sodium 139 140
Potassium 4.5 5.1
Chloride 107 110 H
Carbon Dioxide 19 L 16 L
BUN 40 H 39 H
Creatinine 2.5 H 2.3 H
Glucose 247 H 226 H
Calcium 9.4 9.3
Total Bilirubin 0.3 0.4
AST 31 35
ALT 19 20
Alkaline Phosphatase 72 75
Vital Signs:
Vital Signs
Temp Pulse Resp BP Pulse Ox
97.4 F 87 22 170/79 97
07/12/24 05:59 07/12/24 05:59 07/12/24 05:59 07/12/24 05:59 07/12/24 05:59
[2024-07-12] MEDS: SPIRIVA RESPIMAT 2.5 MCG 2 PUFF INH (07:31)
[2024-07-12] MEDS: NOVOLOG FLEXPEN-LOW RESISTANCE SC (08:33)
[2024-07-12] MEDS: PROTONIX IV 40 MG IV (08:38)
[2024-07-12] MEDS: LOW STRENGTH ASPIRIN 81 MG PO (08:43)
[2024-07-12] MEDS: NORVASC 5 MG PO (08:43)
[2024-07-12] MEDS: COZAAR 25 MG PO (08:43)
[2024-07-12] MEDS: FLUSH (NSS) 1 FLUSH IV (08:45)
[2024-07-12 08:54] LABS: Glycohemoglobin (HgbA1c) 6.9 % (4.0-5.6)
[2024-07-12] MEDS: NOVOLOG FLEXPEN-LOW RESISTANCE 2 UNITS SC (09:32)
[2024-07-12 09:34] LABS: Glucose - Point of Care 201 mg/dl (70-99)
--- NOTE | 2024-07-12 10:07 | CON.CAR ---
Consultation
Consultation Request
Date/Time Consultation Requested: July 12, 2024
Date/Time Consultation Performed: July 12, 2024
Requesting Provider: Hospitalist
Performing Provider: Dr Juliano sheldon
Reason for Consultation: Unstable angina
Medical History
-
Chief Complaint: Abdominal pain and elevated troponins
History of Present Illness:
PRIMARY CARE PHYSICIAN: Adeola Almeida MD
PRIMARY CAMPUS DEAN: Hermelinda Bates DO [facility]
Patient is a 69y M with PMH significant for ASCVD, IPF and DM-II who presents to ED complaining of abdominal pain. History obtained from patient and his at the bedside. Patient notes that he ate some egg salad and potato salad this evening
for dinner. An hour or two later, he developed epigastric abdominal pain that became quite severe. He states that pain radiated across his upper abdomen and into his mid-back. He had nausea with 2 episodes of non-bloody emesis. He denies any
fevers, chills, diarrhea, bloody stools. He was noted to be in moderate discomfort and diaphoretic when he presented to the ED for evaluation.
Patient notes that some of his current symptoms are similar to prior cardiac events.
He was seen here in the ED on 06/26 with diarrhea and abdominal discomfort. CT done at that time showed many, small gallstones without other significant abnormality.
Patient notes that he has felt well since that time.
IV heparin was initiated due to elevated troponins
Cardiology is consulted because troponins were assessed in the emergency department and troponin values are now 0.023, 0.037 and then 0.141
EKG on presentation with sinus tachycardia 108 bpm, LVH, nonspecific ST abnormalities and PVCs and most recent ECG from this morning finds sinus rhythm at 88 bpm with LVH, no PVCs, otherwise no significant change
Past Medical History:
Coronary artery disease
CABG X 3 and TAVR for 01/06/22 at [facility], complicated by prolonged hospital stay including the development of pericardial effusion and sternal dehiscence requiring pericardial window and myocutaneous flap in January 2022
COVID illness in 06/2020 with subsequent long COVID symptoms.
Hypertension.
Insulin-dependent diabetes.
Mixed hyperlipidemia.
CKD III.
GERD.
Right CEA in 08/2021.
Pulmonary Fibrosis
Right Acoustic Neuroma
Sinus Surgery
Carpal Tunnel Surgery
Social History
Tobacco: Former Smoker (Quit 35 years ago, [id number] history)
Alcohol: Occasional
Drug: None
Personal:
Living: With Family
Family History
Family History: Reviewed & Not Pertinent
Allergies / Home Medications
Allergy/AdvReac Type Severity Reaction Status Date / Time
No Known Allergies Allergy Verified 07/11/24 22:56
�Medication �Instructions �Recorded �Confirmed �Type
rosuvastatin 40 mg tablet 40 mg PO HS #30 tabs 01/30/22 07/12/24 Rx
tiotropium bromide 2.5 2 puff inhalation R DAILY #1 ea 01/30/22 07/12/24 Rx
mcg/actuation mist for inhalation
(Spiriva Respimat)
amlodipine 5 mg tablet 5 mg PO DAILY Blood pressure 10/20/22 07/12/24 History
ezetimibe 10 mg tablet 10 mg PO HS High cholesterol 10/20/22 07/12/24 History
furosemide 40 mg tablet 40 mg PO BID Fluid 10/20/22 07/12/24 History
retention/Swelling
gabapentin 100 mg capsule 300 mg PO HS Neurological Condition 10/20/22 07/12/24 History
insulin aspart U-100 100 unit/mL 30 unit SC AC Diabetes 10/20/22 07/12/24 History
(3 mL) subcutaneous pen (Novolog
FlexPen U-100 Insulin aspart)
losartan 25 mg tablet 25 mg PO DAILY Blood pressure 10/20/22 07/12/24 History
metformin 1,000 mg tablet 1,000 mg PO HS Diabetes 10/20/22 07/12/24 History
pantoprazole 40 mg tablet,delayed 40 mg PO HS Gastrointestinal issue 10/20/22 07/12/24 History
release
cholecalciferol (vitamin D3) 25 1,000 units PO DAILY Supplement 10/21/22 07/12/24 History
mcg (1,000 unit) tablet
multivitamin with folic acid 400 1 tab PO DAILY Supplement 10/21/22 07/12/24 History
mcg tablet (Tab-A-Blanquita)
aspirin 325 mg tablet 325 mg PO DAILY 07/12/24 07/12/24 History
fenofibric acid (choline) 135 mg 135 mg PO DAILY 07/12/24 07/12/24 History
capsule,delayed release (Trilipix)
hydroxyzine HCl 25 mg tablet 25 mg PO BID PRN itching 07/12/24 07/12/24 History
insulin detemir U-100 100 unit/mL 20 unit SC HS 07/12/24 07/12/24 History
(3 mL) subcutaneous pen
Review of Systems
-
History Source: Patient
All other systems: Negative unless noted
Constitutional: Fatigue
EENT: No Symptoms
Respiratory: Trouble Breathing (chronic, stable)
Cardiac: No Symptoms
Abdomen/GI: Abdominal Pain, Nausea, Vomiting and Diarrhea
: No Symptoms
Musculoskeletal: No Symptoms
Skin: No Symptoms
Neurological: No Symptoms
Endocrine: No Symptoms
Hematologic/Lymphatic: No Symptoms
Physical Exam
Vital Signs
Temp Pulse Resp BP Pulse Ox
97.6 F 84 18 184/83 100
07/12/24 08:00 07/12/24 08:43 07/12/24 08:00 07/12/24 08:43 07/12/24 08:00
Lab Results
07/11/24 23:48
07/12/24 05:43
Troponin I 0.141 ng/ml H* D 07/12/24 05:43
Oxj-B-Esaorcjxxuy Pept 1110 pg/ml 07/11/24 23:48
Physical Exam
General: Well Developed, Well Nourished and Comfortable
HEENT: Normocephalic, Anicteric and Moist Mucous Membranes
Respiratory: Clear and Non Labored Respirations
Cardiac: S1/S2, Regular Rhythm and Murmur (07/17 BSEM)
Breast: Deferred by me
GI: Soft, Non Distended and Tender
Rectal: Deferred by Provider
Musculoskeletal: No Clubbing, No Cyanosis and Edema (trace pre-tibial)
Skin: Warm and Dry
Neuro: Awake, Alert, Oriented, AO x 3 and No Motor Deficits
Psych: Calm
Impression / Plan
-
PRIMARY CARE PHYSICIAN: Adeola Almeida MD
PRIMARY CAMPUS DEAN: Hermelinda Bates DO of [facility]
Assessment:
Abdominal pain with nausea vomiting and recently also with diarrhea, suspected gallbladder disease
Elevated troponin values without chest pain or shortness of breath and with stable ECG
Coronary artery disease
CABG X 3 and TAVR for 01/06/22 at [facility], complicated by prolonged hospital stay including the development of pericardial effusion and sternal dehiscence requiring pericardial window and myocutaneous flap in January 2022
COVID illness in 06/2020 with subsequent long COVID symptoms.
Hypertension.
Insulin-dependent diabetes.
Mixed hyperlipidemia.
CKD III.
GERD.
Right CEA in 08/2021.
IV heparin was initiated due to elevated troponins
Cardiology is consulted because troponins were assessed in the emergency department and troponin values are now 0.023, 0.037 and then 0.141
EKG on presentation with sinus tachycardia 108 bpm, LVH, nonspecific ST abnormalities and PVCs and most recent ECG from this morning finds sinus rhythm at 88 bpm with LVH, no PVCs, otherwise no significant change
Recommendations:
He has mild upward trend in troponin with no CP or worsened SOB and essentially stable ECG all in the setting of approx 4 weeks of GI symptoms which have included diarrhea (now resolved) and ongoing nausea and vomiting.
He does have a significant cardiovascular history which is outlined in this document.
- Continue to trend tropinin
- Check ECHO
- OK to maintain heparin but would also be OK to stop heparin if GI /surgical evaluation requires
- Maintain asa and statin
- Has been on ARB with reportedly stable stage III CKD
Discussed with patient and his at bedside, all questions answered
Total time 76 min
Data Reviewed
-
EKG: Tracing Personally Visualized and interpreted
Radiology: Image Personally Visualized and interpreted
Medical Tests (Nuc Med, Echo etc): Report Reviewed by me
Labs: Labs Reviewed by me
Old Records: Reviewed
Total Time Spent with Patient (in minutes): 76
[2024-07-12 10:32] LABS: INR 1.03
[2024-07-12 10:33] LABS: APTT 65.4 Sec (23.4-35.0)
[2024-07-12 12:53] LABS: Glucose - Point of Care 199 mg/dl (70-99)
[2024-07-12] MEDS: NOVOLOG FLEXPEN-LOW RESISTANCE 1 UNITS SC ×2 (12:55→18:23)
--- NOTE | 2024-07-12 14:03 | CON.GS ---
Medical History
-
Chief Complaint: Epigastric and RUQ pain
History of Present Illness:
Patient is a 69 yo M with a PMH of obesity, GERD, HTN, HLD, CAD and s/p CT CA with stents x 2, CABG x 3, and AVR, CHF, IDDM, pulmonary fibrosis (home O2 though does not use), and s/p RIGHT CEA. Mr. Pierre presents with RUQ and epigastric
abdominal pain. Symptoms began yesterday evening hours after having a small amount of macaroni salad. He reports mildly improved though persistent epigastric and RUQ abdominal pain. Associated loose and paler stools. No nausea or vomiting. No
fevers or chills. He denies any jaundice or tea colored urine. He reports intermittent issues with abdominal pain and diarrhea over the past several weeks. This is dated back to around . He was previously seen in urgent care down in
[place] diagnosed with a gastroenteritis. He had a recent CT scan as an outpatient on 06/26/2024 which demonstrated cholelithiasis without any signs of cholecystitis.
Past Medical History
Past Medical History: CAD, COPD (Pulmonary fibrosis), GERD, HTN, Hypercholesterolemia, IDDM, [place], Renal Failure and Valvular Disease (Aortic stenosis)
Past Surgical History: Cardiac (PCI with stents, CABG x 3, AVR)
Social History
Tobacco: Former Smoker
Alcohol: None
Drug: None
Personal:
Living: With Family
Family History
Family History: Reviewed & Not Pertinent
Allergies / Home Medications
Allergy/AdvReac Type Severity Reaction Status Date / Time
No Known Allergies Allergy Verified 07/11/24 22:56
�Medication �Instructions �Recorded �Confirmed �Type
rosuvastatin 40 mg tablet 40 mg PO HS #30 tabs 01/30/22 07/12/24 Rx
tiotropium bromide 2.5 2 puff inhalation R DAILY #1 ea 01/30/22 07/12/24 Rx
mcg/actuation mist for inhalation
(Spiriva Respimat)
amlodipine 5 mg tablet 5 mg PO DAILY Blood pressure 10/20/22 07/12/24 History
ezetimibe 10 mg tablet 10 mg PO HS High cholesterol 10/20/22 07/12/24 History
furosemide 40 mg tablet 40 mg PO BID Fluid 10/20/22 07/12/24 History
retention/Swelling
gabapentin 100 mg capsule 300 mg PO HS Neurological Condition 10/20/22 07/12/24 History
insulin aspart U-100 100 unit/mL 30 unit SC AC Diabetes 10/20/22 07/12/24 History
(3 mL) subcutaneous pen (Novolog
FlexPen U-100 Insulin aspart)
losartan 25 mg tablet 25 mg PO DAILY Blood pressure 10/20/22 07/12/24 History
metformin 1,000 mg tablet 1,000 mg PO HS Diabetes 10/20/22 07/12/24 History
pantoprazole 40 mg tablet,delayed 40 mg PO HS Gastrointestinal issue 10/20/22 07/12/24 History
release
cholecalciferol (vitamin D3) 25 1,000 units PO DAILY Supplement 10/21/22 07/12/24 History
mcg (1,000 unit) tablet
multivitamin with folic acid 400 1 tab PO DAILY Supplement 10/21/22 07/12/24 History
mcg tablet (Tab-A-Blanquita)
aspirin 325 mg tablet 325 mg PO DAILY 07/12/24 07/12/24 History
fenofibric acid (choline) 135 mg 135 mg PO DAILY 07/12/24 07/12/24 History
capsule,delayed release (Trilipix)
hydroxyzine HCl 25 mg tablet 25 mg PO BID PRN itching 07/12/24 07/12/24 History
insulin detemir U-100 100 unit/mL 20 unit SC HS 07/12/24 07/12/24 History
(3 mL) subcutaneous pen
Review of Systems
-
A 10 point review of systems was completed, and was negative except as per HPI.
Physical Exam
Vital Signs
Temp Pulse Resp BP Pulse Ox
98.3 F 92 18 156/62 99
07/12/24 12:00 07/12/24 12:00 07/12/24 12:00 07/12/24 12:00 07/12/24 12:00
07/11/24 07/12/24 07/13/24
06:59 06:59 06:59
Actual Weight 96.661 kg
Body Mass Index (BMI) 33.4
Lab Results
07/11/24 23:48
07/12/24 05:43
WBC 7.4 10^3/uL (4.8-10.8) 07/11/24 23:48
Hgb 13.5 g/dL (13.0-18.0) 07/11/24 23:48
Hct 41.1 % (39.0-52.0) 07/11/24 23:48
Plt Count 284 10^3/uL (130-400) 07/11/24 23:48
Abs Immat Gran (auto) 0.0 10^3/uL (0-0.05) 07/11/24 23:48
Neutrophils % 57.9 % (42.2-75.2) 07/11/24 23:48
Physical Exam
General: Well Developed, Well Nourished and No Apparent Distress
Respiratory: Non Labored Respirations
Cardiac: Regular Rhythm
GI: Soft, Tender (Mild epigastric and RUQ, negative Portillo sign), Obese and Other (Nonperitoneal)
Musculoskeletal: No Edema
Skin: Warm and Dry
Neuro: Nonfocal/Grossly Intact
Data Reviewed
-
CT Scan: Image Personally Visualized and interpreted and Report Reviewed by me
Ultrasound: Image Personally Visualized and interpreted and Report Reviewed by me
Labs: Labs Reviewed by me
Old Records: Reviewed
Assessment / Plan
-
Patient is a 69 yo M p/w likely acute on chronic cholecystitis
Clinical history most consistent with that of acute on chronic cholecystitis given the episodic nature and location of his discomfort with some association with oral intake. Differential includes gastritis, pancreatitis, and duodenitis. Less
likely a primary cardiovascular or pulmonary issue though noted to have a rising troponin which may be more indicative of cardiac stress combined with underlying CKD. Currently on a heparin drip. Cardiology consult noted. No significant changes
in EKG. Plan for a TTE. Workup thus far including CT scan and ultrasound were reviewed which demonstrate cholelithiasis without any evidence of acute cholecystitis. Plan for a repeat CT scan with oral contrast to rule out alternative diagnoses
and to help confirm the most likely source being the gallbladder. He has been having worsening issues with shortness of breath over the past several weeks. He follows with Dr. Henson for a [employer].
-- CT abdomen/pelvis with PO contrast
-- Cardiology work-up and risk stratification on-going
-- Pulm consult for risk stratification and aid in management
-- Tentative plan for lap aroldo with IOC tomorrow pending the above, will need to coordinate with Hep gtt
-- Abx: Zosyn
[2024-07-12] MEDS: ZOSYN 50 IV ×2 (15:04→20:20)
[2024-07-12 15:08] LABS: Lipase 275 U/L (23-300)
[2024-07-12 18:07] LABS: APTT 49.3 Sec (23.4-35.0)
[2024-07-12 18:21] LABS: Glucose - Point of Care 159 mg/dl (70-99)
[2024-07-12 18:58] LABS: Troponin I 0.239 ng/ml
[2024-07-12] MEDS: NEURONTIN 300 MG PO (22:38)
[2024-07-12] MEDS: CRESTOR 40 MG PO (22:39)
[2024-07-12] MEDS: LANTUS 0.1 UNITS SC (22:40)
[2024-07-12 22:41] LABS: Glucose - Point of Care 174 mg/dl (70-99)
[2024-07-12 23:45] LABS: Troponin I 0.265 ng/ml
[2024-07-12 23:58] LABS: Glucose - Point of Care 145 mg/dl (70-99)
[2024-07-13] VITALS (12 sets, daily range): BP systolic 114–164; BP diastolic 65–76; BMI 32.7
[2024-07-13] MEDS: NOVOLOG FLEXPEN-LOW RESISTANCE SC ×2 (00:04→18:10)
[2024-07-13 01:24] LABS: APTT 93.6 Sec (23.4-35.0)
[2024-07-13] MEDS: ZOSYN 50 IV ×4 (01:56→21:00)
[2024-07-13] MEDS: HEPARIN 25000 UNITS/250 ML IV (02:05)
[2024-07-13 05:43] LABS: Glucose - Point of Care 168 mg/dl (70-99)
[2024-07-13] MEDS: NOVOLOG FLEXPEN-LOW RESISTANCE 1 UNITS SC ×2 (05:44→12:23)
[2024-07-13 06:59] LABS: % Basophils 1.1 % (0-2); % Eosinophils 3.6 % (0-6); % Immature Granulocytes 0.4 % (0-0.5); % Lymphocytes 14.2 % (20.5-51.1); % Neutrophils 70.7 % (42.2-75.2); Absolute Basophils 0.1 10^3/uL (0-0.2); Absolute Eosinophils 0.3 10^3/uL (0-0.7); Absolute Lymphocytes 1.2 10^3/uL (1.2-3.4); Absolute Monocytes 0.8 10^3/uL (0.1-0.6); Hemoglobin 12.7 g/dL (13.0-18.0); Mean Corp Hgb Conc. 32.6 g/dL (33.0-37.0); Nucleated Red Blood Cells % 0 % (-); Platelet Count 275 10^3/uL (130-400); Red Blood Cell Count 4.38 10^6/uL (4.70-6.10); Red Cell Dist. Width 15.4 % (11.5-14.5); White Blood Cell Count 8.4 10^3/uL (4.8-10.8)
[2024-07-13 07:18] LABS: APTT 110.7 Sec (23.4-35.0)
[2024-07-13 07:21] LABS: Blood Urea Nitrogen 34 mg/dl (9-20); Calcium 9.2 mg/dl (8.4-10.2); Carbon Dioxide 21 mmol/L (22-30); Chloride 108 mmol/L (98-107); Estimated Creatinine Clearance 33 ml/min; Glucose 190 mg/dl (70-99); Magnesium 2.2 mg/dl (1.6-2.3); Potassium 4.9 mmol/L (3.5-5.1); Sodium 140 mmol/L (135-145); eGFR 29.99
[2024-07-13 07:22] LABS: Troponin I 0.208 ng/ml
[2024-07-13] MEDS: SPIRIVA RESPIMAT 2.5 MCG 2 PUFF INH (07:32)
[2024-07-13] MEDS: COZAAR 25 MG PO (08:15)
[2024-07-13] MEDS: LOW STRENGTH ASPIRIN 81 MG PO (08:15)
[2024-07-13] MEDS: NORVASC 5 MG PO (08:15)
[2024-07-13] MEDS: PROTONIX IV 40 MG IV (08:16)
[2024-07-13] MEDS: DILAUDID 0.5 MG IV (08:19)
--- NOTE | 2024-07-13 08:46 | W.PN.HOSP.TC ---
Today's Communication/Plan
-
Lap aroldo today
Assessment / Plan
Assessment / Plan
Physical Exam
General: Not in acute distress
HEENT: Moist mucous membranes
Respiratory: CTAB
Cardiac: S1/S2, Regular Rhythm and Murmur (I/ ROCHELLE)
GI: Other (Obese. Tenderness across the upper abdomen - most evident in the RUQ. No rebound / guarding. Pos BS.)
Musculoskeletal: No Cyanosis. Trace edema bilaterally.
Neuro: AAO x 3
Assessment/Plan
Patient is a 69 y/o male with past medical history significant for ASCVD, DM-II and IPF who presented to ED complaining of abdominal pain.
Abdominal Pain with ongoing nausea and vomiting, diarrhea x 4 weeks
Suspected acute on chronic cholecystitis (most likely) vs. gastritis vs. pancreatitis vs. duodenitis
Cholelithiasis
- Etiology is unclear - but seems most c/w symptomatic cholelithiasis / biliary colic.
- US done showed gallstone potentially impacted in GB neck.
- Pain control / supportive care / NPO.
- Continue antibiotics
- Surgery evaluation: lap aroldo today
Coronary artery disease
CABG X 3 and TAVR for 01/06/22 at [facility], complicated by prolonged hospital stay including the development of pericardial effusion and sternal dehiscence requiring pericardial window and myocutaneous flap in January 2022
Elevated troponin suspected secondary to nonischemic myocardial injury
- Possible that current symptoms are anginal equivalent
- EKG noted with possible ischemia
- Troponin increased mildly
- Continue to trend troponin
- Continue Heparin drip
- Continue ASA (81mg daily), statin, etc.
- Echocardiogram with normal EF, mild concentric LVH, thickened mitral valve leaflets, mitral annular calcification, trace mitral regurgitation, moderately abnormal indexed LA volume, and Bioprosthetic
aortic valve replacement (history of TAVR).
- Cardiology evaluation for additional recommendations.
Chronic HFpEF
- Stable. Does not appear volume overloaded.
- Rales chronically on exam due to pulmonary fibrosis.
- Hold Lasix for now.
- Follow I/Os, daily weights, etc.
Benign Hypertension
- Stable. Continue current med regimen with holding parameters.
Hyperlipidemia
DM-II
- Stable. Continue basal : bolus insulin - decrease dose while NPO.
Pulmonary Fibrosis
- Stable. Chronic / unchanged dyspnea.
- Continue inhaler regimen. Nebs PRN.
STERLING on CKD III
- SCr = 2.5 with unclear baseline. CKD III per . Patient sees Dr. Bette Melgoza business unit leader (phone number [phone])
- Prior labs with SCr from 1.5 - 3.5.
- Follow for changes over the next 48 hours.
- Hold Lasix acutely.
GERD
- Continue daily PPI
COVID illness in 06/2020 with subsequent long COVID symptoms
Right CEA in 08/2021
DVT Prophylaxis: On IV Heparin
Code Status: Full
Anticipated Discharge: 24 - 48 hours
Subjective/Interval History
-
Date of Service: July 13, 2024
Patient was seen and examined this morning. He denied any active symptoms or complaints.
Objective Data
-
Labs:
Laboratory Results
07/13/24 07/13/24
00:51 06:02
WBC 8.4
Hgb 12.7 L
Hct 39.0
Plt Count 275
APTT 93.6 H 110.7 H
Sodium 140
Potassium 4.9
Chloride 108 H
Carbon Dioxide 21 L
BUN 34 H
Creatinine 2.3 H
Glucose 190 H
Calcium 9.2
Vital Signs:
Vital Signs
Temp Pulse Resp BP Pulse Ox
98.3 F 90 18 164/72 95
07/13/24 07:00 07/13/24 07:35 07/13/24 07:35 07/13/24 08:15 07/13/24 07:35
I&O
07/12/24 07/13/24 07/14/24
06:59 06:59 06:59
Intake Total 426 / 426
Balance 426 / 426
--- NOTE | 2024-07-13 09:46 | PTCARENOTE ---
Heparin gtt put on hold per order from Dr. Powers for OR later today.
--- NOTE | 2024-07-13 09:47 | W.PN.GS2 ---
Today's Communication / Plan
-
`
Assessment / Plan
-
Assessment: 69-year-old male with probable acute calculus cholecystitis
Elevated Trop but no symptoms of acute TN -cardiology following, echo pending
Reviewed with patient treatment options. Given persistent localizing tenderness discussed indications for cholecystectomy or percutaneous cholecystostomy tube drainage. Patient's preference is for cholecystectomy for definitive management and
cardiology pending echo is comfortable with proceeding with surgery as well. Laparoscopic cholecystectomy with possible cholangiogram was reviewed in detail with the patient including the operative technique utilizing a drawling/diagram. We
discussed alternative treatment options. Reviewed the benefits and potential risks such as but not limited to bleeding, infectious and related complications, iatrogenic injury to surrounding viscera, bile duct injury, bile leak. Discussed typical
postoperative recovery pending operative findings.
Any of the patient's concerns or questions were fully addressed.
Plan: Patient has been added onto the OR schedule today.
Confirmed with cardiology -stop heparin drip in anticipation of surgery today
Pre-op echo pending this a.m. as well
Continue Zosyn
Supportive care with plan for lap aroldo possible cholange in afternoon
Subjective Data
-
Date of Service: July 13, 2024
Patient seen and examined.
Persistent abdominal discomfort
No nausea, no vomiting
Objective Data
-
Intake and Output
07/12/24 07/13/24 07/14/24
06:59 06:59 06:59
Intake Total 426 / 426
Balance 426 / 426
Intake:
Oral fluids 220 / 220
IV fluids (Total) 106 / 106
IV piggybacks 100 / 100
Other:
Number of approximated MODERATE 2 3
amounts of urine
Vital Signs
Temp Pulse Resp BP Pulse Ox
98.3 F 90 18 164/72 95
07/13/24 07:00 07/13/24 07:35 07/13/24 07:35 07/13/24 08:15 07/13/24 07:35
Lab Results
07/13/24 06:02
07/13/24 06:02
Calcium 9.2 mg/dl (8.4-10.2) 07/13/24 06:02
Magnesium 2.2 mg/dl (1.6-2.3) 07/13/24 06:02
Total Bilirubin 0.4 mg/dl (0.2-1.3) 07/12/24 05:43
Direct Bilirubin 0.2 mg/dl (0.0-0.4) 07/12/24 05:43
AST 35 U/L (17-59) 07/12/24 05:43
ALT 20 U/L (0-50) 07/12/24 05:43
Alkaline Phosphatase 75 U/L (38-126) 07/12/24 05:43
Total Protein 6.7 g/dl (6.3-8.2) 07/12/24 05:43
Albumin 4.0 g/dl (3.5-5.0) 07/12/24 05:43
Physical Exam
-
NAD, AAOx3, comfortably resting in hospital bed
ABD: Soft, nondistended, tenderness palpation localizing to the right upper quadrant. Some localized guarding on deep palpation. Remaining abdomen without rebound rigidity or guarding.
--- NOTE | 2024-07-13 11:26 | W.PN.CARDCBS ---
Today's Communication / Plan
-
Suspect troponin elevation is nonischemic myocardial injury
Check echo
Check ECG
If echo and ECG okay then okay for cholecystectomy without further testing
Impression / Plan
-
PRIMARY CARE PHYSICIAN: Adeola Almeida MD
PRIMARY DIRECT CASTING OPERATOR: Hermelinda Bates DO of [facility]
Assessment:
Abdominal pain with nausea vomiting and recently also with diarrhea, cholecystitis
Elevated troponin values without chest pain or shortness of breath and with stable ECG, peak troponin 0.265
Coronary artery disease
CABG X 3 and TAVR for 01/06/[address] [facility], complicated by prolonged hospital stay including the development of pericardial effusion and sternal dehiscence requiring pericardial window and myocutaneous flap in January 2022
COVID illness in 06/2020 with subsequent long COVID symptoms.
Hypertension.
Insulin-dependent diabetes.
Mixed hyperlipidemia.
CKD III.
GERD.
Right CEA in 08/2021.
IV heparin was initiated due to elevated troponins
Cardiology is consulted because troponins were assessed in the emergency department and peak troponin of 0.265
Recommendations:
Suspect troponin elevation is nonischemic myocardial injury
Check echocardiogram
Check ECG
If echocardiogram okay patient is okay to have cholecystectomy without further testing
Discussed with general surgery
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
Subjective
Date of Service: July 13, 2024
No complaints.
Objective
Labs:
07/13/24 06:02
07/13/24 06:02
Labs
Hgb 12.7 g/dL (13.0-18.0) L 07/13/24 06:02
Hct 39.0 % (39.0-52.0) 07/13/24 06:02
Plt Count 275 10^3/uL (130-400) 07/13/24 06:02
PT 14.0 Sec (11.4-14.6) 07/12/24 10:13
INR 1.03 07/12/24 10:13
APTT 110.7 Sec (23.4-35.0) H 07/13/24 06:02
Sodium 140 mmol/L (135-145) 07/13/24 06:02
Potassium 4.9 mmol/L (3.5-5.1) 07/13/24 06:02
BUN 34 mg/dl (9-20) H 07/13/24 06:02
Creatinine 2.3 mg/dL (0.7-1.3) H 07/13/24 06:02
Glucose 190 mg/dl (70-99) H 07/13/24 06:02
Troponins
07/11/24 07/12/24 07/12/24
23:48 00:59 05:43
Troponin I 0.023 0.037 H* D 0.141 H* D
07/12/24 07/12/24 07/12/24
10:13 17:44 18:25
Troponin I 0.160 H* Cancelled 0.239 H*
07/12/24 07/13/24
23:09 06:02
Troponin I 0.265 H* 0.208 H*
Vital Signs and I&O:
Vital Signs
Temp Pulse Resp BP Pulse Ox
98.3 F 90 18 164/72 95
07/13/24 07:00 07/13/24 07:35 07/13/24 07:35 07/13/24 08:15 07/13/24 08:00
Vital Signs
Temp Pulse Resp BP Pulse Ox
98.3 F 90 18 164/72 95
07/13/24 07:00 07/13/24 07:35 07/13/24 07:35 07/13/24 08:15 07/13/24 08:00
Intake & Output
07/11/24 07/12/24 07/13/2403/25
06:59 06:59 06:59 06:59
Intake Total 426 / 426
Balance 426 426
Physical Exam
Physical Exam
General: Well developed, well nourished in NAD.
Neck: Supple, no JVD, HJR, carotids +2 B/L, no bruits bilaterally.
Heart: Non displaced PMI, RRR, no murmurs, No S3, S4, no rubs.
Lungs: Clear to auscultation bilaterally, no wheeze, rhonchi, rubs bilaterally,
normal expiratory phase.
Extremities: No clubbing, cyanosis or edema bilaterally.
Neuro: Grossly nonfocal, awake, alert and oriented x3.
--- NOTE | 2024-07-13 11:28 | CARDSERVLU ---
Echocardiogram with Lumason completed after protocol screening completed. Allergies verified.
Patent IV site: Left arm median antecubital 18 G PC
IV site flushed with 0.9% NaCl pre and post administration.
Diluted bolus method utilized to enhance visualization of ventricular gallegos.
Total volume given: 3____ mL
Patient tolerated all procedures well without complications.
[2024-07-13 11:31] LABS: Troponin I 0.167 ng/ml
--- NOTE | 2024-07-13 11:31 | CM ---
CM following re: discharge planning.
Reviewed pt's chart, met with pt and pt's son Tevin at bedside.
Pt is a 69 year old male, admitted with primary dx of acute on chronic cholecystitis. OR today.
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 Pt reports he has
portable O2 tank and a concentrator.
PCP: Tiffanie Sanabria
Pharmacy: [facility]
D/C plan: home with anticipated no needs. family to transport at discharge.
CM will follow with discharge plan updates as hospitalization progresses
[2024-07-13 12:15] LABS: Glucose - Point of Care 159 mg/dl (70-99)
--- NOTE | 2024-07-13 16:34 | W.SUR.PREOP ---
Pre-Operative Surgical Note
-
I have examined this patient prior to the performance of the scheduled procedure.
The patient's condition is unchanged from the time of the current History and
Physical and the patient is able to undergo the scheduled procedure.
--- NOTE | 2024-07-13 18:37 | W.IMMPOSTOP ---
Addendum entered and electronically signed by Will Powers MD 07/13/24 19:04:
#[id number]
Original Note:
Surgical Immed Post Op Note
-
Primary Surgeon: Will Powers MD
Assisting Surgeon: Louie Villa MD,PGY-1
Pre-op Diagnosis: Acute Calculous Cholecystitis
Post-op Diagnosis: Acute Calculous Cholecystitis
Procedure Performed: Laparoscopic Cholecystectomy with IOC
Anesthesia Type: GETA + 0.25% Marcaine
Specimen / Cultures: GB/none
Estimated Blood Loss: 16mL
Complications: none immediate
Operative Findings: tensely distended GB - needle decompressed. Cystic artery - anterior and posterior branch controlled with clips. IOC normal. Cystic duct controlled with 3 proximal clips. GB removed from umbilical 10mm port site. Surgiflo
application to cystic triangle d/t acute inflammation with raw surface area. no significant bleeding though.
Plan: advance to low fat diet as tolerated
continue Abx 24hrs post op
ASA okay to continue without interruption
IV heparin for therapeutic AC should be held for 24hrs post op (no bolus if resumed); if indicated therapeutic oral anticoagulation would be held for 72hrs post op
[2024-07-13] MEDS: DILAUDID 0.25 MG IV (19:05)
[2024-07-13 19:09] LABS: Glucose - Point of Care 210 mg/dl (70-99)
[2024-07-13] MEDS: NOVOLOG vial 2 UNITS SC (19:22)
[2024-07-13] MEDS: CRESTOR 40 MG PO (21:40)
[2024-07-13] MEDS: NEURONTIN 300 MG PO (21:40)
[2024-07-13] MEDS: LANTUS 0.1 UNITS SC (21:45)
[2024-07-13 21:53] LABS: Glucose - Point of Care 210 mg/dl (70-99)
--- NOTE | 2024-07-14 | TRANSFER ---
1939: received report from COMMUNITY ORGANIZATION AIDE Tina. Received pt in bed post op Laparoscopic Cholecystectomy with IOC, family waiting in room. Pt drowsy but arousable to verbal. X4 lap sites to Beatriz MANNING, pt denied pain. VS WNL. pt able to make all needs
known. Call ramos within reach, bed in lowest position. Assessment ongoing.
[2024-07-14] MEDS: ZOSYN 50 IV ×3 (03:00→13:50)
[2024-07-14 03:05] VITALS: BP 148/73
[2024-07-14] MEDS: DILAUDID 0.5 MG IV (03:15)
[2024-07-14 06:00] VITALS: BMI 33.3
[2024-07-14] MEDS: SPIRIVA RESPIMAT 2.5 MCG 2 PUFF INH (06:34)
[2024-07-14 06:44] LABS: % Basophils 0.1 % (0-2); % Immature Granulocytes 0.4 % (0-0.5); % Lymphocytes 7.9 % (20.5-51.1); % Monocytes 3.4 % (1.7-9.3); % Neutrophils 88.2 % (42.2-75.2); Absolute Lymphocytes 0.6 10^3/uL (1.2-3.4); Absolute Monocytes 0.2 10^3/uL (0.1-0.6); Absolute Neutrophils 6.1 10^3/uL (1.4-6.5); Hematocrit 34.1 % (39.0-52.0); Hemoglobin 11.1 g/dL (13.0-18.0); Mean Corp Hgb Conc. 32.6 g/dL (33.0-37.0); Mean Corpuscular Hgb 29.1 pg (27.0-31.0); Mean Corpuscular Volume 89.5 fL (80.0-94.0); Nucleated Red Blood Cells % 0 % (-); Platelet Count 237 10^3/uL (130-400); Red Blood Cell Count 3.81 10^6/uL (4.70-6.10); Red Cell Dist. Width 14.9 % (11.5-14.5)
[2024-07-14 06:52] LABS: APTT 39.4 Sec (23.4-35.0)
[2024-07-14 07:09] LABS: ALT (SGPT) 28 U/L (0-50); AST (SGOT) 54 U/L (17-59); Albumin 3.2 g/dl (3.5-5.0); Alkaline Phosphatase 61 U/L (38-126); Blood Urea Nitrogen 36 mg/dl (9-20); Calcium 8.6 mg/dl (8.4-10.2); Carbon Dioxide 19 mmol/L (22-30); Chloride 106 mmol/L (98-107); Estimated Creatinine Clearance 35 ml/min; Glucose 244 mg/dl (70-99); Potassium 5.1 mmol/L (3.5-5.1); Sodium 138 mmol/L (135-145); Total Bilirubin 0.5 mg/dl (0.2-1.3); Total Protein 5.7 g/dl (6.3-8.2); eGFR 31.63
[2024-07-14 07:10] VITALS: BP 131/50
[2024-07-14 08:33] LABS: Glucose - Point of Care 271 mg/dl (70-99)
[2024-07-14] MEDS: PROTONIX IV 40 MG IV (08:36)
[2024-07-14] MEDS: NOVOLOG FLEXPEN-LOW RESISTANCE 3 UNITS SC ×2 (08:36→12:40)
[2024-07-14] MEDS: COZAAR 25 MG PO (08:37)
[2024-07-14] MEDS: NORVASC 5 MG PO (08:37)
[2024-07-14] MEDS: LOW STRENGTH ASPIRIN 81 MG PO (08:37)
[2024-07-14] MEDS: TYLENOL 650 MG PO (08:40)
--- NOTE | 2024-07-14 09:10 | W.PN.CARDCBS ---
Today's Communication / Plan
-
stable for d/c from cardiology viewpoint
Impression / Plan
-
PRIMARY CARE PHYSICIAN: Adeola Almeida MD
PRIMARY HISTORY DEPARTMENT CHAIR: Hermelinda Bates DO of [facility]
Assessment:
Abdominal pain with nausea vomiting and recently also with diarrhea, cholecystitis
Elevated troponin values without chest pain or shortness of breath and with stable ECG, peak troponin 0.265/ nonischemic myocardial injury
Coronary artery disease
CABG X 3 and TAVR for 01/06/22 at [facility], complicated by prolonged hospital stay including the development of pericardial effusion and sternal dehiscence requiring pericardial window and myocutaneous flap in January 2022
COVID illness in 06/2020 with subsequent long COVID symptoms.
Hypertension.
Insulin-dependent diabetes.
Mixed hyperlipidemia.
CKD III.
GERD.
Right CEA in 08/2021.
IV heparin was initiated due to elevated troponins
Cardiology is consulted because troponins were assessed in the emergency department and peak troponin of 0.265
Echo 07/13/24: NL EF
Recommendations:
stable cardiology status for d/c to home
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
Subjective
Date of Service: July 14, 2024
no complaints
Objective
Labs:
07/14/24 05:41
07/14/24 05:41
Labs
Hgb 11.1 g/dL (13.0-18.0) L 07/14/24 05:41
Hct 34.1 % (39.0-52.0) L 07/14/24 05:41
Plt Count 237 10^3/uL (130-400) 07/14/24 05:41
PT 14.0 Sec (11.4-14.6) 07/12/24 10:13
INR 1.03 07/12/24 10:13
APTT 39.4 Sec (23.4-35.0) H 07/14/24 05:41
Sodium 138 mmol/L (135-145) 07/14/24 05:41
Potassium 5.1 mmol/L (3.5-5.1) 07/14/24 05:41
BUN 36 mg/dl (9-20) H 07/14/24 05:41
Creatinine 2.2 mg/dL (0.7-1.3) H 07/14/24 05:41
Glucose 244 mg/dl (70-99) H 07/14/24 05:41
Troponins
07/11/24 07/12/24 07/12/24
23:48 00:59 05:43
Troponin I 0.023 0.037 H* D 0.141 H* D
07/12/24 07/12/24 07/12/24
10:13 17:44 18:25
Troponin I 0.160 H* Cancelled 0.239 H*
07/12/24 07/13/24 07/13/24
23:09 06:02 10:33
Troponin I 0.265 H* 0.208 H* 0.167 H*
07/13/24
21:49
Troponin I Cancelled
Vital Signs and I&O:
Vital Signs
Temp Pulse Resp BP Pulse Ox
97.6 F 75 16 131/50 99
07/14/24 07:10 07/14/24 07:10 07/14/24 07:10 07/14/24 08:37 07/14/24 07:10
Vital Signs
Temp Pulse Resp BP Pulse Ox
97.6 F 75 16 131/50 99
07/14/24 07:10 07/14/24 07:10 07/14/24 07:10 07/14/24 08:37 07/14/24 07:10
Intake & Output
07/12/24 07/13/24 07/14/24 07/15/24
06:59 06:59 06:59 06:59
Intake Total 42 426 880 / 880
Balance 880 / 0
Physical Exam
Physical Exam
General: Well developed, well nourished in NAD.
Neck: Supple, no JVD, HJR, carotids +2 B/L, no bruits bilaterally.
Heart: Non displaced PMI, RRR, no murmurs, No S3, S4, no rubs.
Lungs: Clear to auscultation bilaterally, no wheeze, rhonchi, rubs bilaterally,
normal expiratory phase.
Extremities: No clubbing, cyanosis or edema bilaterally.
Neuro: Grossly nonfocal, awake, alert and oriented x3.
--- NOTE | 2024-07-14 09:18 | W.PN.GS2 ---
Today's Communication / Plan
-
dispo planning
Assessment / Plan
-
Assessment: 69-year-old male with acute calculus cholecystitis now POD #1 lap aroldo
LFT's normal post op, no leukocytosis
Cardiology following given elevation in troponin
AFVSS
Tolerating diet, pain well managed. Following expected post operative course
Plan:
Continue LFD
Continue IV Zosyn through today's 1400 dose, then ok to d/c
Analgesics as needed
Ok for discharge from surgical standpoint, updated d/c insturctions
Subjective Data
-
Date of Service: July 14, 2024
Patient seen and examined at bedside with Dr Evans. Minimal discomfort at incisions. Took a walk around the unit. Denies abdominal pain. Denies n/v. Tolerating diet
Objective Data
-
Intake and Output
07/13/24 07/14/24 07/15/24
06:59 06:59 06:59
Intake Total 426 / 426 880 / 880
Balance 426 / 426 880 / 880
Intake:
Oral fluids 220 / 220 880 / 880
IV fluids (Total) 106 / 106
IV piggybacks 100 / 100
Other:
Number of approximated MODERATE 3 2
amounts of urine
How many times incontinent 5
MODERATE amount urine
Vital Signs
Temp Pulse Resp BP Pulse Ox
97.6 F 75 16 131/50 99
07/14/24 07:10 07/14/24 07:10 07/14/24 07:10 07/14/24 08:37 07/14/24 07:10
Lab Results
07/14/24 05:41
07/14/24 05:41
Calcium 8.6 mg/dl (8.4-10.2) 07/14/24 05:41
Magnesium 2.2 mg/dl (1.6-2.3) 07/13/24 06:02
Total Bilirubin 0.5 mg/dl (0.2-1.3) 07/14/24 05:41
Direct Bilirubin 0.2 mg/dl (0.0-0.4) 07/12/24 05:43
AST 54 U/L (17-59) 07/14/24 05:41
ALT 28 U/L (0-50) 07/14/24 05:41
Alkaline Phosphatase 61 U/L (38-126) 07/14/24 05:41
Total Protein 5.7 g/dl (6.3-8.2) L 07/14/24 05:41
Albumin 3.2 g/dl (3.5-5.0) L 07/14/24 05:41
Physical Exam
-
NAD, AAOx3, comfortably resting in hospital bed
ABD: Soft, nondistended, minimal incisional tenderness
Incisions: Well approximated with intact glue, no erythema
[2024-07-14 11:10] VITALS: BP 119/42
[2024-07-14 12:40] LABS: Glucose - Point of Care 291 mg/dl (70-99)
--- NOTE | 2024-07-14 13:44 | CM ---
Chart reviewed
Met with pt - poss discharge today
Pt reports he will have transport home
Given IMM
Plan - anticipate home no needs
[2024-07-14 15:08] VITALS: BP 131/60
--- NOTE | 2024-07-14 15:43 | W.PN.HOSP.TC ---
Today's Communication/Plan
-
Discharge today
Assessment / Plan
Assessment / Plan
Physical Exam
General: Not in acute distress
HEENT: Moist mucous membranes
Respiratory: CTAB
Cardiac: S1/S2, Regular Rhythm and Murmur (I/ ROCHELLE)
GI: Other (Obese. Tenderness across the upper abdomen - most evident in the RUQ. No rebound / guarding. Pos BS.)
Musculoskeletal: No Cyanosis. Trace edema bilaterally.
Neuro: AAO x 3
Assessment/Plan
Patient is a 69 y/o male with past medical history significant for ASCVD, DM-II and IPF who presented to ED complaining of abdominal pain.
Abdominal Pain with ongoing nausea and vomiting, diarrhea x 4 weeks
Suspected acute on chronic cholecystitis (most likely) status post laparoscopic cholecystectomy (with intraoperative cholangiogram) on 07/13/24
Cholelithiasis
- Etiology is unclear - but seems most c/w symptomatic cholelithiasis / biliary colic.
- US done showed gallstone potentially impacted in GB neck.
- Pain control / supportive care / NPO.
- Continue antibiotics through today, and then okay to stop
- Surgery evaluation appreciated
- Continue low fat diet
Coronary artery disease
CABG X 3 and TAVR for 01/06/22 at [facility], complicated by prolonged hospital stay including the development of pericardial effusion and sternal dehiscence requiring pericardial window and myocutaneous flap in January 2022
Elevated troponin suspected secondary to nonischemic myocardial injury
- Possible that current symptoms are anginal equivalent
- EKG noted with possible ischemia
- Troponin increased mildly
- Continue ASA (81mg daily), statin, etc.
- Echocardiogram with normal EF, mild concentric LVH, thickened mitral valve leaflets, mitral annular calcification, trace mitral regurgitation, moderately abnormal indexed LA volume, and Bioprosthetic
aortic valve replacement (history of TAVR).
- Cardiology evaluation for additional recommendations: from their standpoint, patient can be discharged home today
Chronic HFpEF
- Stable. Does not appear volume overloaded.
- Rales chronically on exam due to pulmonary fibrosis.
- Follow I/Os, daily weights, etc.
Benign Hypertension
- Stable. Continue current med regimen with holding parameters.
Hyperlipidemia
DM-II
- Stable. Continue basal : bolus insulin
Pulmonary Fibrosis
- Stable. Chronic / unchanged dyspnea.
- Continue inhaler regimen. Nebs PRN.
STERLING on CKD III
- SCr = 2.5 with unclear baseline. CKD III per . Patient sees Dr. Bette Melgoza property consultant (phone number [phone])
- Prior labs with SCr from 1.5 - 3.5.
GERD
- Continue daily PPI
COVID illness in 06/2020 with subsequent long COVID symptoms
Right CEA in 08/2021
DVT Prophylaxis: SCDs
Code Status: Full
More than 30 minutes spent in discharge including
Final examination of the patient
Summarizing hospital stay
Instructions for continuing care to all relevant caregivers
Preparation of discharge records, prescriptions, and referral forms
Total time spent (in minutes): 39
Anticipated Discharge: Today
Subjective/Interval History
-
Date of Service: July 14, 2024
Patient was and examined. He reported feeling good, denied any chest pain, abdominal pain or any other complaints.
Objective Data
-
Labs:
Laboratory Results
07/14/24
05:41
WBC 7.0
Hgb 11.1 L
Hct 34.1 L
Plt Count 237
APTT 39.4 H
Sodium 138
Potassium 5.1
Chloride 106
Carbon Dioxide 19 L
BUN 36 H
Creatinine 2.2 H
Glucose 244 H
Calcium 8.6
Total Bilirubin 0.5
AST 54
ALT 28
Alkaline Phosphatase 61
Vital Signs:
Vital Signs
Temp Pulse Resp BP Pulse Ox
98.0 F 78 16 119/42 96
07/14/24 11:10 07/14/24 11:10 07/14/24 11:10 07/14/24 11:10 07/14/24 11:10
I&O
07/13/24 07/14/24 07/15/24
06:59 06:59 06:59
Intake Total 426 / 426 880 / 880
Balance 426 / 426 880 / 880
--- NOTE | 2024-07-14 16:22 | W.DCSUMMARY ---
Discharge Summary
Discharge Data
Date of Admission: 07/12/24
Date of Discharge: 07/14/24
Total time spent discharging patient (in min): 39
-
Pending Results: Yes
Additional Pending Results:
Biopsy results from surgery
Hospital Course
69 y/o male with history of CABG and coronary artery disease, bioprosthetic aortic valve replacement, DM, CKD, CEA Surgery, who presented with abdominal pain. Patient was started on Heparin Drip due to concerns of possible NSTEMI and cardiology was
consulted given EKG changes and increasing troponins but cardiology suspected troponin elevation was due to nonischemic myocardial injury. Echocardiogram showed ejection fraction of 60 to 65%. General surgery was also consulted. Patient was given
Zosyn antibiotics. On July 13, 2024, patient had laparoscopic cholecystectomy with intraoperative cholangiogram for acute calculous cholecystitis. Patient did well after surgery and was stable for discharge home.
Discharge Plan
-
Patient Disposition: Home (Routine Discharge)
Discharge Diagnosis/Procedures: Abdominal Pain with ongoing nausea and vomiting, diarrhea x 4 weeks
Suspected acute on chronic cholecystitis (most likely) status post laparoscopic cholecystectomy (with intraoperative cholangiogram) on 07/13/24
Cholelithiasis
Coronary artery disease
CABG X 3 and TAVR for 01/06/22 at [facility], complicated by prolonged hospital stay including the development of pericardial effusion and sternal dehiscence requiring pericardial window and myocutaneous flap in January 2022
Elevated troponin suspected secondary to non-ischemic myocardial injury
Chronic HFpEF
Benign Hypertension
Hyperlipidemia
Type 2 Diabetes Mellitus
Pulmonary Fibrosis
STERLING on CKD III
Gastroesophageal Reflux Disease
COVID illness in 06/2020 with subsequent long COVID symptoms
Right CEA in 08/2021
Condition: Good
Diet: As tolerated and Low Fat
Additional Diets: If you have loose stools after surgery, avoid greasy or oily foods as well as high fat dairy
Activity: No strenuous activity
Additional Activity: Do not lift over 20 lbs for 3-4 weeks
[address]riving Restrictions: Wait until off narcotics 2-3 days
Bathing Restrictions: OK to Shower
Blood Work: CBC, CMP and Magnesium check with your primary care provider's office in 4 to 5 days
Specialty Instructions: Weigh Daily- Call MD for wt gain/loss 3 lbs overnight/5 lbs in 1 week
Activity Restrictions/Additional Instructions:
Will Powers MD [facility] - General Surgery
[facility]
[address], [address]
[place] [address]
[phone]
Post-Operative Instructions for Gallbladder Surgery
The incision sites are sealed with a surgical glue dressing.� It is safe to shower at any time after surgery when the glue is dry.� Let shower water run over the incisions and then pat dry.
Glue dressing typically peels off in 2-3 weeks.
Abdominal/incisional pain and discomfort, shoulder/scapular pain, bloating, and mild nausea, as well as bruising/stiffness and swelling at the incision sites are common after surgery.� If felt to be excessive, notify us.
Please start postoperative pain management using over the counter medications such as Tylenol and Ibuprofen, per instructions on the bottle, as long as there are no medical reasons why you cannot take these medications.
Ice the incisions sites for 20 minutes every hour or so to help with postoperative incisional pain and reduce postoperative surgical site swelling.� Take care NOT to get an ice burn on the skin surface.
A warm heating pad is often helpful to alleviate shoulder/scapular back pains after laparoscopic procedures.� This pain typically dissipates 24-72hrs post op.
Transition to a low fat diet as tolerated after surgery if not experiencing postoperative nausea or significant bloating/distention.� Some fatty food intolerance may occur shortly after surgery (cramps,bloating, nausea,diarrhea with fat intake).
Constipation is common following surgery and postoperative narcotic use.� May use a stool softener such as Colace (100 mg 2x day) to prevent constipation
If no BM 24hrs after surgery, recommend starting daily Miralax
If no BM in 24-48hrs after starting Miralax --> recommend then using a dose of magnesium citrate or milk of magnesia with a Senokot tablet to help alleviate post operative constipation as long as there is no nausea/vomiting and passing gas.
Resume all preoperative medications as prescribed, unless directed otherwise.
Do not drive or drink alcohol for 24 hrs after having anesthesia or while taking narcotic pain medications.
Resume regular daily light activities, such as walking, standing and going up/down stairs as tolerated within 24hrs of surgery.� Please refrain from lifting over 20 lbs or strenuous exercise until postoperative follow up visit &/or approximately
3-4 weeks.�
Call the office with a fever above 101� F, nausea with vomiting, severe abdominal pain, yellowing of skin or eyes, spreading redness and drainage from incision sites or with any concerns/questions.
If not arranged prior to surgery, please call the office to schedule or confirm your 10-14 day postoperative surgical follow-up office visit with Dr. Powers.
Referrals:
Will Powers MD [Active] - in two to four weeks
Oswaldo Gandhi MD [Family Provider] - in less than 1 week
Hermelinda Bates DO [Non-Admitting Privileges] - in two to three weeks
Additional Discharge Medication Instructions: Furosemide has been changed to 40 mg daily for now -- see your doctor next week to see if it can be increased back to 40 mg BID.
Your home Insulin Aspart dose has been reduced to 5 units AC -- but check your blood sugars at home and increase as appropriate -- discuss this with your primary care provider.
Your home Insulin Detemir has been decreased from 20 units to 10 units HS to prevent hypoglycemia -- but check your blood sugars at home and increase as appropriate -- discuss this with your primary care provider.
Metformin is on hold until outpatient follow-up with PCP.
Discuss with your primary care provider about reducing your Aspirin dose to 81 mg, and if he recommends it.
Prescriptions:
Continued
amlodipine 5 mg tablet
5 mg PO DAILY
losartan 25 mg tablet
25 mg PO DAILY
gabapentin 100 mg capsule
300 mg PO HS
pantoprazole 40 mg tablet,delayed release (DR/EC)
40 mg PO HS
ezetimibe 10 mg tablet
10 mg PO HS
cholecalciferol (vitamin D3) 25 mcg (1,000 unit) tablet
1,000 units PO DAILY
multivitamin with folic acid [Tab-A-Blanquita] 400 mcg tablet
1 tab PO DAILY
hydroxyzine HCl 25 mg Tablet
25 mg PO BID PRN (Reason: itching)
fenofibric acid (choline) [Trilipix] 135 mg Capsule,Delayed Release(Dr/Ec)
135 mg PO DAILY
aspirin 325 mg Tablet
325 mg PO DAILY
rosuvastatin 40 mg Tablet
40 mg PO HS Qty: 30 0RF
Spiriva Respimat 2.5 mcg/actuation Mist
2 puff inhalation R DAILY Qty: 1 0RF
Changed
furosemide 40 mg tablet
40 mg PO DAILY Qty: 0 0RF
insulin aspart U-100 [Novolog FlexPen U-100 Insulin] 100 unit/mL (3 mL) insulin pen
5 unit SC AC Qty: 0 0RF
insulin detemir U-100 100 unit/mL (3 mL) Insulin Pen
10 unit SC HS Qty: 0 0RF
Held
metformin 1,000 mg tablet
1,000 mg PO HS
Hold Instructions: Resume on 08/18/24. Discuss with your primary care provider regarding if and when to resume this medication.
Discharge Orders:
Discharge Patient (As Directed); Ordered 07/14/24
Ordered By: Anshul Kern
Discharge Date and Time
Discharge Date/Time: 07/14/24 17:15
Print Language: TRINIDADIAN
== END 2024-07-14 17:15 | disposition home or self-care (01) | DRG 418 ==
LOC: 2 SOUTH 03:55
PROVIDERS: Surgery; ADMITTING PHYSICIAN Hospitalist; ATTENDING PHYSICIAN Hospitalist; CONSULT PHYSICIAN Internal Medicine Cardiovascular Disease; CONSULT PHYSICIAN Surgery; EMERGENCY PHYSICIAN Student in an Organized Health Care Education/Training Program; FAMILY PHYSICIAN Family Medicine
PROC: 0FT44ZZ Resection of Gallbladder, Percutaneous Endoscopic Approach (ICD-10-PCS; 2024-07-13)
DX: K80.00 Calculus of gallbladder with acute cholecystitis without obstruction (principal); I13.0 Hypertensive heart and chronic kidney disease with heart failure and stage 1 through stage 4 chronic kidney disease, or unspecified chronic kidney disease; I50.32 Chronic diastolic (congestive) heart failure; N17.9 Acute kidney failure, unspecified; I5A Non-ischemic myocardial injury (non-traumatic); Z87.891 Personal history of nicotine dependence; I25.10 Atherosclerotic heart disease of native coronary artery without angina pectoris; J84.10 Pulmonary fibrosis, unspecified; N18.30 Chronic kidney disease, stage 3 unspecified; E11.22 Type 2 diabetes mellitus with diabetic chronic kidney disease; K21.9 Gastro-esophageal reflux disease without esophagitis
CPT/HCPCS: 88304; 71046; 74300; 76000; 76700; 80048; 80053; 80061; 82248; 82962; 83036; 83605; 83690; 83735; 83880; 84484; 85025; 85610; 85730; 93005; 93306; 94640; 96365; 96375; 96376; 99291; A4300; Q9950

== ENCOUNTER 2025-02-24 17:29 | Observation (INO) | payer MEDICARE, OTHER, SELFPAY ==
[2025-02-24] VITALS (11 sets, daily range): BP systolic 98–164; BP diastolic 59–79; BMI 31.8
--- NOTE | 2025-02-24 12:18 | ED.GENMED ---
History of Present Illness
General
Chief Complaint: Weakness
Source: patient
Exam Limitations: none
Time Seen by Provider: 02/24/25 11:56
History of Present Illness
History of Present Illness:
70yoM with a history of coronary artery disease, CHF, hypertension, hyperlipidemia, insulin-dependent diabetes, CKD presenting with his for evaluation of right leg weakness. Patient got up to go to the bathroom around 4am yesterday morning and
noticed low back pain. This is not unusual for him. He reports having a 'bad back' and previously had to receive steroid injections at pain management. Around 6am yesterday, he noticed that his right leg was weak and he was having trouble lifting
up the leg. He typically ambulates with a walker but has needed to use a cane since his symptoms began. He also reports decreased sensation throughout the leg. His back pain has resolved after applying Icy Hot. He denies any bowel/bladder
issues, saddle anesthesia, fevers, right leg pain, or any symptoms in the upper extremities.
Past History
Past History
ED Past Medical History: CAD, HTN, NIDDM, Renal failure and Other (covid)
ED Past Surgical History: None, Cardiac and Orthopedic
Social History
Tobacco: Former smoker
Alcohol: Occasional
Drug: None
Personal:
Living: with family
Employment: Disabled
Family History
Family History: Diabetes
Phy Exam
General Physical Exam
General Presentation: well appearing and no apparent distress
General Skin: warm and dry
General Habitus: normal
General Mental: alert
ENT Exam
ENT Exam: normocephalic
Cardiovascular Exam
Cardiovascular Exam: normal peripheral pulses (2+ DP pulses bilaterally)
Pulmonary Exam
Pulmonary Exam: no respiratory distress
Gastrointestinal Exam
Gastrointestinal Exam: non tender, soft and non distended
Neurological Exam
Neurological Exam: alert and other (4/5 strength with R hip flexion and dorsiflexion. No objective sensory deficit noted.)
Alyson Coma Scale
Eye Opening: Spontaneous
Verbal Response: Oriented
Motor Response: Obeys Commands
GCS Total Score: 15
Musculoskeletal Exam
Musculoskeletal Exam: other (Icy Hot patch on lumbar region. No reproducible tenderness. )
Skin Exam
Skin Exam: normal color and warm/dry
Psychiatric Exam
Psychiatric Exam: normal mood/affect
Course
Orders/Labs/Results
Orders:
Orders
02/24/25 12:14
CT Lumbar Spine W/o Iv Contras Urgent
Comment:
Reason For Exam: back pain, R leg weakness
02/24/25 17:18
Admit/Transfer Patient As Directed
Co-Sign Provider:
Level of Care: Observation services
Assign to:: Medical/Surgical
Physician / Group: [facility]
Diagnosis: back pain
CT Head W/o Iv Contrast Routine
Comment:
Reason For Exam: right LE weakness
PRN Pain Medication Management As Directed
May give lesser potent ordered pain med per pt: Yes
preference::
Protocol:: Medication orders for pain may be administered in a
manner that supports deferring to patient preference
when the pt is:
- Requesting an ordered lesser potent pain medication.
Least to most potent pain medications are defined
as: acetaminophen < NSAID < tramadol < opioids
(morphine, oxycodone, hydromorphone).
- Requesting a lesser dose of the same medication IF
ORDERED.
- Requesting a less intrusive route of administration
if both routes are prescribed by the provider (PO <
IV).
02/24/25 17:20
Code Status As Directed
Resuscitation Status: Full Code
02/24/25 17:30
Complete Blood Count/With Diff Urgent
Comprehensive Metabolic Panel Urgent
Vital Signs
Initial and Last Documented VS:
Initial Vital Signs
Temp Pulse Resp BP Pulse Ox
98 F 87 16 135/64 98
02/24/25 10:21 02/24/25 10:21 02/24/25 10:21 02/24/25 10:21 02/24/25 10:21
Last Documented Vital Signs
Temp Pulse Resp BP Pulse Ox
98 F 80 17 142/64 97
02/24/25 10:21 02/24/25 17:15 02/24/25 17:15 02/24/25 17:10 02/24/25 17:10
MDM/Problems Addressed
Differential Diagnosis Includes:
70yoM here with back pain and R leg weakness x 1 day. Hx of chronic back issues but weakness is new. No bowel/bladder issues or saddle anesthesia. VSS. 4/5 strength with R hip flexion and dorsiflexion noted on exam. DP pulses are easily palpable
bilaterally. Differential diagnosis includes but is not limited to: lumbar radiculopathy, sciatica, doubt cauda equina, no clinical evidence of acute arterial occlusion
Initial ED plan: Check CT lumbar spine without contrast.
*Pulse Oximetry
SaO2: 100
Oxygen Mode of Delivery: Room air
Patient hypoxic: no (98%)
*Critical Care Note
Total Time (30-74mins, 75-104mins- exclusive of procedures): Not Applicable
Update Note
Update Note:
Imaging shows multilevel degenerative changes without acute fracture. Patient having difficulty ambulating with a cane on reassessment which is very unusual for him. Will admit for PT/OT assessments.
ED Attending Note
-
Portions of this chart may have been created with voice recognition software.� Occasional wrong word or��sound alike� substitutions may have occurred due to the inherent limitations of voice recognition software.
Discharge Plan
Departure
Patient Disposition: Admit
Date of Disposition: 02/24/25
Time of Disposition: 16:49
Presentation/result/management discussed w/ accepting MD/DO: Hospitalist
Discharge Problem:
Weakness of right lower extremity
Interventions
Interventions:
*Risk Screen - Suicide Last Done: 02/24/25 10:21
*General Assessment Last Done: 02/24/25 11:25
*Neglect/Abuse Screening Last Done: 02/24/25 10:21
*ED- Fall Risk Assessment Last Done: 02/24/25 11:25
*ED COVID-19 Vaccine History Last Done: 02/24/25 11:25
ED- Cardiac Assessment Last Done: 02/24/25 11:25
ED- Neurological Assessment Last Done: 02/24/25 11:25
ED- Pulmonary Assessment Last Done: 02/24/25 11:25
--- NOTE | 2025-02-24 16:50 | HPS.HSE ---
Family Physician
-
Family Physician: Adeola Almeida MD
Chief Complaint
-
right Le weakness/back apin
History of Present Illness
70yoM with a history of coronary artery disease, CHF, hypertension, hyperlipidemia, insulin-dependent diabetes, CKD presenting with his for evaluation of right leg weakness. patient stated worsening of chronic lower back pain and noted right
LE weak and was not able to lift. he was walking with cane today. He also reports decreased sensation throughout the leg. His back pain has resolved after applying Icy Hot. He denies any bowel/bladder issues, saddle anesthesia, fevers, right leg
pain. denied MEREDITH, dizzy or syncope. denied fever, chills, chest pain, sob. denied dysuria or hematuria.
CT with no acute findings. admitting for further management
Medical History
Past Medical History
Past Medical History: Reports Other
Additional Past Medical History:
type 2 Dm
HTN
moderate
HLD
CKD
GERD
right acoustic neuroma tumor
interstitial ribrosis
Past Surgical History: Reports Other
Additional Past Surgical History:
carpel tunnel release
sinus surgery
cardiac stent
triple bypass and aortic valve replacement
cholecystectomy
Social History
Tobacco: Non-smoker
Alcohol: None
Drug: None
Personal:
Living: With Family
Family History
Family History: Not pertinent
Allergies / Home Medications
Allergies reflects when Allergies were last updated in [employer].
Home Medications with original date entered in [employer]
Allergy/Medication List:
Allergies
Allergy/AdvReac Type Severity Reaction Status Date / Time
No Known Allergies Allergy Verified 02/24/25 10:20
Home Medications
rosuvastatin 40 mg tablet 40 mg PO HS #30 tabs 01/30/22
tiotropium bromide 2.5 mcg/actuation mist for inhalation (Spiriva Respimat) 2 puff inhalation R DAILY #1 ea 01/30/22
amlodipine 5 mg tablet 5 mg PO DAILY Blood pressure 10/20/22
ezetimibe 10 mg tablet 10 mg PO HS High cholesterol 10/20/22
gabapentin 100 mg capsule 100 mg PO HS Neurological Condition 10/20/22
losartan 25 mg tablet 50 mg PO DAILY Blood pressure 10/20/22
metformin 1,000 mg tablet 1,000 mg PO HS Diabetes 10/20/22
Held on 07/14/24. Instructions: Resume on 08/18/24. Discuss with your primary care provider regarding if and when to resume this medication.
pantoprazole 40 mg tablet,delayed release 40 mg PO HS Gastrointestinal issue 10/20/22
fenofibric acid (choline) 135 mg capsule,delayed release (Trilipix) 135 mg PO DAILY High Cholesterol 07/12/24
hydroxyzine HCl 25 mg tablet 25 mg PO BID PRN itching 07/12/24
insulin aspart U-100 100 unit/mL (3 mL) subcutaneous pen (Novolog FlexPen U-100 Insulin aspart) 5 unit (0.05 mL) SC AC Diabetes #0 mL 07/14/24
finerenone 10 mg tablet (Kerendia) 10 mg PO DAILY 02/24/25
furosemide 40 mg tablet 20 mg PO DAILY Fluid retention/Swelling 02/24/25
insulin degludec 100 unit/mL (3 mL) subcutaneous pen 15 unit SC HS 02/24/25
insulin degludec 100 unit/mL (3 mL) subcutaneous pen unit SC 02/24/25
Review of Systems
-
Constitutional: Reports No Symptoms
EENT: Reports No Symptoms
Respiratory: Reports No Symptoms
Cardiac: Reports No Symptoms
Abdomen/GI: Reports No Symptoms
: Reports No Symptoms
Musculoskeletal: Reports Other (back pain with right LE weakness)
Skin: Reports No Symptoms
Neurological: Reports No Symptoms
Endocrine: Reports No Symptoms
Hematologic/Lymphatic: Reports No Symptoms
Psych: Reports No Symptoms
Physical Exam
Vital Signs
Vital Signs
Temp Pulse Resp BP Pulse Ox
98 F 75 17 135/67 99
02/24/25 10:21 02/24/25 16:30 02/24/25 16:30 02/24/25 16:00 02/24/25 16:30
Physical Exam
General: Well Developed, Well Nourished and No Apparent Distress
HEENT: NormoCephalic, Moist mucous membranes and Atraumatic
Respiratory: Clear
Cardiac: S1/S2 and Regular Rhythm; No Murmur or Rub
GI: Soft, Non Tender, Non Distended and Normal Bowel Sounds; No Organomegaly
Rectal: Deferred by Provider
Musculoskeletal: No Clubbing, No Cyanosis and Other (weaker right LE)
Skin: No Rash
Neuro: AO x 3 and Nonfocal/grossly intact
Psych: Calm
Data Reviewed
-
CT Scan: Report Reviewed by me
Lab Data: Labs Reviewed by me
Impression/Plan
-
#right leg weakness/back pain
-CT with the impression of Scoliosis. No compression deformity. No spondylolisthesis. Multilevel discogenic and facet degenerative changes. Please refer to above discussion for specific and additional details at individual levels.If indicated,
nonemergent/elective follow-up MRI may be considered.
-PT/OT
-Tylenol, lidocaine
-obtain CT of head
-CTm
#Coronary artery disease
-CABG X 3 and TAVR for 01/06/22
#Chronic HFpEF
- Stable. Does not appear volume overloaded.
- Follow I/Os, daily weights, etc.
-Diuretics continued
#Benign Hypertension
- Stable.
-norvasc and losartan continued with hold parameter
#Hyperlipidemia
-statin continued
#DM-II
- Stable
-sliding scale
-CHO diet
-Tresiba at hs
\\#Pulmonary Fibrosis
-nebs from home continued
# CKD III
-Kerendia continued
#GERD
- Continue daily PPI
Right CEA in 08/2021
DVT Prophylaxis: heparin
Code Status: Full
--- NOTE | 2025-02-24 17:11 | W.PN.UPDATE ---
Update Note
Progress Note Update
This note serves as an addendum to the H&P by invoice coder LUCIA�
Arlene GAEL
HPI�
70M HX multiple comorbidities seen at ER
- R leg weakness and back pain x 1 day
- typically ambulates independently but is now having trouble walking with a cane due to his weakness.
- 4/5 strength with R hip and dorsiflexion.
- CT lumbar spine shows degenerative changes without fracture.
- acute on chronic gait dysfunction dye to LBP and R Ilir weakness
PHX
CAD - CABG X 3 and TAVR for 01/06/22 at [facility], complicated by prolonged hospital stay including the development of pericardial effusion and sternal dehiscence requiring pericardial window and myocutaneous flap in January
2021
Chronic HFpEF
Benign Hypertension
Hyperlipidemia
Type 2 Diabetes Mellitus
Pulmonary Fibrosis
CKD3
Gastroesophageal Reflux Disease
COVID illness in 06/2020 with subsequent long COVID symptoms
Right CEA in 08/2021
Relevant VS
PE
General: Not in acute distress
HEENT: Moist mucous membranes
Respiratory: CTAB
Cardiac: S1/S2, Regular Rhythm and Murmur (I/ ROCHELLE)
GI: Obese.
Musculoskeletal: No Cyanosis. Trace edema bilaterally.
Neuro: AAO x 3; R Ilir weakness 4/[address] Lumbar Spine W/o Iv Contrast
- Scoliosis.
- No compression deformity. No spondylolisthesis.
- Multilevel discogenic and facet degenerative changes.
- If indicated, nonemergent/elective follow-up MRI may be considered.
Last hospitalist admission: Date of Admission: 07/12/24 - Date of Discharge: 07/14/24
DC Dx:
Abdominal Pain with ongoing nausea and vomiting, diarrhea x 4 weeks
Suspected acute on chronic cholecystitis (most likely) status post laparoscopic cholecystectomy (with intraoperative cholangiogram) on 07/13/24
Cholelithiasis
Known PNHX
Coronary artery disease
CABG X 3 and TAVR for 01/06/22 at [facility], complicated by prolonged hospital stay including the development of pericardial effusion and sternal dehiscence requiring pericardial window and myocutaneous flap in January 2022
Elevated troponin suspected secondary to non-ischemic myocardial injury
Chronic HFpEF
Benign Hypertension
Hyperlipidemia
Type 2 Diabetes Mellitus
Pulmonary Fibrosis
CKD3
Gastroesophageal Reflux Disease
COVID illness in 06/2020 with subsequent long COVID symptoms
Right CEA in 08/2021
ASSESSMENT & PLAN
chronic LBP flare with new R LE weakness with decompensated chr gait dysfunction
- HX claustrophobia and reluctant to do MRI without sedation
- able to walk with cane
- No BW and Bladder dysfunction
- CT Lumbar Spine W/o Iv Contrast suggest no compression deformity. multilevel discogenic and facet degenerative changes.
- Hold off Medrol dose pack due to patient is reluctant in view of DM
- PRN narcotic analgesia
- PT/OT
- OP MRI of Lx spine
CAD HX
HX CABG X 3 and TAVR for 01/06/22 at [facility]
- hospital course complicated by prolonged hospital stay, pericardial effusion and sternal dehiscence requiring pericardial window and myocutaneous flap in January 2022
- on ASA (81mg daily), statin
Bioprosthetic aortic valve replacement / TAVR
Chronic HFpEF
- Stable. Does not appear volume overloaded.
- Rales chronically on exam due to pulmonary fibrosis.
- Follow I/Os, daily weights, etc.
Benign Hypertension
- Stable.
- c/w current med regimen with holding parameters.
Hyperlipidemia
DM-II
- Stable.
- Continue basal : bolus insulin
Pulmonary Fibrosis
- Stable. Chronic / unchanged dyspnea.
- Continue inhaler regimen. Nebs PRN.
CKD3b - current Cr pending
Baseline : Cr in low 2s, eGFR low 30s
- sees Dr. Bette Melgoza installers mechanical (phone number [phone])
- f/u admission Cr
GERD
- Continue daily PPI
HX COVID illness in 06/2020 with subsequent long COVID symptoms
Right CEA in 08/2021
DVT Px: SCD
Full code
OBS MS
[2025-02-24 17:41] LABS: Hematocrit 40.3 % (39.0-52.0); Hemoglobin 13.6 g/dL (13.0-18.0); Mean Corp Hgb Conc. 33.7 g/dL (33.0-37.0); Mean Corpuscular Volume 85.4 fL (80.0-94.0); Nucleated Red Blood Cells % 0 % (-); Platelet Count 252 10^3/uL (130-400); Red Cell Dist. Width 15.4 % (11.5-14.5)
[2025-02-24 17:55] LABS: ALT (SGPT) 17 U/L (0-50); AST (SGOT) 31 U/L (17-59); Albumin 4.2 g/dl (3.5-5.0); Alkaline Phosphatase 54 U/L (38-126); Blood Urea Nitrogen 64 mg/dl (9-20); Calcium 9.6 mg/dl (8.4-10.2); Carbon Dioxide 21 mmol/L (22-30); Chloride 111 mmol/L (98-107); Glucose 110 mg/dl (70-99); Potassium 5.0 mmol/L (3.5-5.1); Sodium 142 mmol/L (135-145); Total Protein 7.4 g/dl (6.3-8.2); eGFR 20.05
[2025-02-24] MEDS: HEPARIN 5000 UNITS SC (19:39)
[2025-02-24 21:13] LABS: Glucose - Point of Care 161 mg/dl (70-99)
[2025-02-24] MEDS: NEURONTIN 100 MG PO (21:18)
[2025-02-24] MEDS: LANTUS 0.15 UNITS SC (21:18)
[2025-02-24] MEDS: PROTONIX 40 MG PO (21:18)
[2025-02-24] MEDS: CRESTOR 40 MG PO (21:19)
[2025-02-24] MEDS: ZETIA 10 MG PO (21:19)
[2025-02-25 06:00] VITALS: BMI 31.7
[2025-02-25 07:43] LABS: Glucose - Point of Care 135 mg/dl (70-99)
[2025-02-25] MEDS: SPIRIVA RESPIMAT 2.5 MCG 2 PUFF INH (07:52)
[2025-02-25 07:55] VITALS: BP 149/70
[2025-02-25 08:12] LABS: Blood Urea Nitrogen 60 mg/dl (9-20); Calcium 9.4 mg/dl (8.4-10.2); Carbon Dioxide 22 mmol/L (22-30); Chloride 113 mmol/L (98-107); Estimated Creatinine Clearance 26 ml/min; Glucose 165 mg/dl (70-99); Potassium 4.9 mmol/L (3.5-5.1); Sodium 141 mmol/L (135-145); eGFR 22.56
[2025-02-25 08:15] LABS: Hematocrit 39.3 % (39.0-52.0); Hemoglobin 12.9 g/dL (13.0-18.0); Mean Corp Hgb Conc. 32.8 g/dL (33.0-37.0); Mean Corpuscular Volume 85.2 fL (80.0-94.0); Nucleated Red Blood Cells % 0 % (-); Platelet Count 253 10^3/uL (130-400); Red Cell Dist. Width 15.3 % (11.5-14.5)
[2025-02-25] MEDS: TRICOR 145 MG PO (08:38)
[2025-02-25] MEDS: LIDOCAINE 4% PATCH 1 PATCH TOPICAL (08:38)
[2025-02-25] MEDS: HEPARIN 5000 UNITS SC ×2 (08:38→20:59)
--- NOTE | 2025-02-25 09:57 | W.PN.HOSP.TC ---
Today's Communication/Plan
-
Monitor vital signs and see plan
Monitor renal function
Check urine studies, renal/bladder ultrasound
PT/OT
Assessment / Plan
Assessment / Plan
General: Well Developed, Well Nourished and No Apparent Distress
HEENT: NormoCephalic, Moist mucous membranes and Atraumatic
Respiratory: Clear
Cardiac: S1/S2 and Regular Rhythm; No Murmur or Rub
GI: Soft, Non Tender, Non Distended and Normal Bowel Sounds
Musculoskeletal: Other (weaker right LE)
Neuro: AO x 3 and Nonfocal/grossly intact
Psych: Calm
right leg weakness/back pain
-CT with the impression of Scoliosis. No compression deformity. No spondylolisthesis. Multilevel discogenic and facet degenerative changes.If indicated, nonemergent/elective follow-up MRI may be considered. Per patient he cannot get close MRI
Patient has had disc bulging history, has had multiple back injections in the past. No prior history of surgery
Weakness appears to be improving on its own
-PT/OT
-Tylenol, lidocaine
Head CT with moderate chronic microvascular white matter ischemic disease. No acute intracranial hemorrhage
-CTm
#Coronary artery disease
-CABG X 3 and TAVR for 01/06/22
# Suspect STERLING on CKD III
Creatinine 3.2 on admission, now 2.9
Check UA, urine lites, check renal/bladder US
If do not improve then will need nephrology evaluation
#Chronic HFpEF
- Stable. Does not appear volume overloaded.
- Follow I/Os, daily weights, etc.
- Hold Lasix given STERLING, hold
#Benign Hypertension
- Stable.
-norvasc continue
Hold losartan
#Hyperlipidemia
-statin continued
#DM-II
- Stable
-sliding scale
-Tresiba at hs
#Pulmonary Fibrosis
-nebs from home continued
#GERD
- Continue daily PPI
Right CEA in 08/2021
DVT Prophylaxis: heparin
Code Status: Full
Anticipated Discharge: Within 24 hours
Subjective/Interval History
-
Date of Service: February 25, 2025
denies nausea
Objective Data
-
Labs:
Laboratory Results
02/25/25 02/25/25
06:43 07:54
WBC 5.4 Cancelled
Hgb 12.9 L Cancelled
Hct 39.3 Cancelled
Plt Count 253 Cancelled
Sodium 141
Potassium 4.9
Chloride 113 H
Carbon Dioxide 22
BUN 60 H
Creatinine 2.9 H
Glucose 165 H
Calcium 9.4
Vital Signs:
Vital Signs
Temp Pulse Resp BP Pulse Ox
97.5 F 73 16 149/70 97
02/25/25 07:55 02/25/25 07:55 02/25/25 07:55 02/25/25 07:55 02/25/25 07:55
I&O
02/24/25 02/25/25 02/26/25
06:59 06:59 06:59
Intake Total 240 / 240
Balance 240 / 240
[2025-02-25] MEDS: NORVASC 5 MG PO (11:01)
[2025-02-25 11:37] LABS: Urine Character Clear (Clear)
[2025-02-25 11:50] LABS: Urine Red Blood Cell 0-2 /HPF (0-2); Urine Squamous Cell 0-2 /LPF (Few); Urine White Cell 0-2 /HPF (0-5)
[2025-02-25 11:55] LABS: Glycohemoglobin (HgbA1c) 6.8 % (4.0-5.6)
[2025-02-25 12:00] VITALS: BP 148/81; PULSE 92; O2SAT 97
[2025-02-25 12:07] LABS: Glucose - Point of Care 148 mg/dl (70-99)
[2025-02-25] MEDS: TYLENOL 650 MG PO ×2 (14:11→19:30)
[2025-02-25 14:17] VITALS: BP 140/65; PULSE 88; O2SAT 98
[2025-02-25 15:55] VITALS: BP 144/65
[2025-02-25] MEDS: NON-FORMULARY ITEM 10 MG PO (16:18)
[2025-02-25 17:23] LABS: Glucose - Point of Care 140 mg/dl (70-99)
[2025-02-25] MEDS: PROTONIX 40 MG PO (21:00)
[2025-02-25] MEDS: NEURONTIN 100 MG PO (21:00)
[2025-02-25] MEDS: CRESTOR 40 MG PO (21:00)
[2025-02-25] MEDS: ZETIA 10 MG PO (21:00)
[2025-02-25 21:19] LABS: Glucose - Point of Care 146 mg/dl (70-99)
[2025-02-25] MEDS: LANTUS 0.15 UNITS SC (21:29)
[2025-02-25 23:23] VITALS: BP 143/67
[2025-02-26 06:00] VITALS: BMI 31.5
[2025-02-26 07:19] LABS: Glucose - Point of Care 142 mg/dl (70-99)
[2025-02-26 07:35] VITALS: BP 138/64
[2025-02-26] MEDS: SPIRIVA RESPIMAT 2.5 MCG 2 PUFF INH (07:41)
[2025-02-26] MEDS: NON-FORMULARY ITEM 10 MG PO (08:14)
[2025-02-26] MEDS: TRICOR 145 MG PO (08:14)
[2025-02-26] MEDS: HEPARIN 5000 UNITS SC (08:14)
[2025-02-26] MEDS: LIDOCAINE 4% PATCH 1 PATCH TOPICAL (08:15)
[2025-02-26] MEDS: NORVASC 5 MG PO (08:15)
[2025-02-26] MEDS: TYLENOL 650 MG PO (08:31)
[2025-02-26 09:19] LABS: Hematocrit 42.8 % (39.0-52.0); Hemoglobin 13.9 g/dL (13.0-18.0); Mean Corp Hgb Conc. 32.5 g/dL (33.0-37.0); Mean Corpuscular Volume 86.3 fL (80.0-94.0); Nucleated Red Blood Cells % 0 % (-); Platelet Count 294 10^3/uL (130-400); Red Cell Dist. Width 15.0 % (11.5-14.5)
[2025-02-26 10:00] LABS: Blood Urea Nitrogen 52 mg/dl (9-20); Calcium 9.6 mg/dl (8.4-10.2); Carbon Dioxide 19 mmol/L (22-30); Chloride 110 mmol/L (98-107); Estimated Creatinine Clearance 32 ml/min; Glucose 207 mg/dl (70-99); Potassium 5.1 mmol/L (3.5-5.1); Sodium 140 mmol/L (135-145); eGFR 28.32
[2025-02-26 12:08] LABS: Glucose - Point of Care 140 mg/dl (70-99)
[2025-02-26 12:28] VITALS: BP 168/81
--- NOTE | 2025-02-26 12:37 | W.DCSUMMARY ---
Discharge Summary
Discharge Data
Date of Admission: 02/24/25
Date of Discharge: 02/26/25
Total time spent discharging patient (in min): 40
-
Pending Results: No
Hospital Course
Disposition : Home
Hospital Course :
70yoM with a history of coronary artery disease, CHF, hypertension, hyperlipidemia, insulin-dependent diabetes, CKD presenting with his for evaluation of right leg weakness.
Patient felt to have chronic LBP flare with new R LE weakness with decompensated chronic gait dysfunction. Head CT with moderate chronic microvascular white matter ischemic disease. No acute intracranial hemorrhage. CT spine with the impression of
Scoliosis. No compression deformity. No spondylolisthesis. Multilevel discogenic and facet degenerative changes.If indicated, nonemergent/elective follow-up MRI may be considered. PT/OT recommended outpatient physical therapy. Suspected STERLING on CKD
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
Discharge exam
General: Not in acute distress
HEENT: Moist mucous membranes
Respiratory: CTAB
Cardiac: S1/S2, Regular Rhythm and Murmur (I/ ROCHELLE)
GI: Obese.
Musculoskeletal: No Cyanosis. Trace edema bilaterally.
Neuro: AAO x 3
Discharge Plan
-
Patient Disposition: Home (Routine Discharge)
Discharge Diagnosis/Procedures: weakness
Condition: Good
Diet: Low Sodium
Activity: No restrictions and With Walker
Bathing Restrictions: None
Other Services: PT and OT
Referrals:
Adeola Almeida MD [Family Provider, Family Practice]
Bette Melgoza MD [Non-Admitting Privileges, Nephrology] - in one to two weeks
Hermelinda Bates DO [Non-Admitting Privileges, Internal Medicine] - in one to two weeks
Additional Discharge Medication Instructions: losartan held until your outpatient doctor resumes
Prescriptions:
New
(DME) outpatient PT
See Rx Instructions .Route .MEDSUPPLY Qty: 1 0RF
Rx Instructions:
# ambulatory dysfunction
Continued
amlodipine 5 mg tablet
5 mg PO DAILY
gabapentin 100 mg capsule
100 mg PO HS
pantoprazole 40 mg tablet,delayed release (DR/EC)
40 mg PO HS
ezetimibe 10 mg tablet
10 mg PO HS
hydroxyzine HCl 25 mg Tablet
25 mg PO BID PRN (Reason: itching)
Kerendia 10 mg tablet
10 mg PO DAILY
furosemide 40 mg tablet
20 mg PO DAILY
therapeutic multivitamin Tablet
1 tab PO DAILY
metformin 1,000 mg tablet
1,000 mg PO HS
cholecalciferol (vitamin D3) 25 mcg (1,000 unit) Tablet
25 mcg PO DAILY
fenofibric acid (choline) 135 mg capsule,delayed release(DR/EC)
135 mg PO DAILY
insulin degludec 100 unit/mL (3 mL) insulin pen
See Rx Instructions .ROUTE .COMPLEX
Rx Instructions:
pt says he ususally injects 15u hs
fluticasone furoate [Arnuity Ellipta] 200 mcg/actuation blister with device
1 inh INHALATION DAILYPRN PRN (Reason: sob)
Fiasp FlexTouch U-100 Insulin 100 unit/mL (3 mL) insulin pen
See Rx Instructions .ROUTE .COMPLEX
Rx Instructions:
sliding scale AC
Mounjaro 12.5 mg/0.5 mL pen injector
12.5 mg SC QWEEK
Rx Instructions:
Wednesday
rosuvastatin 40 mg Tablet
40 mg PO HS Qty: 30 0RF
Spiriva Respimat 2.5 mcg/actuation Mist
2 puff inhalation R DAILY Qty: 1 0RF
Changed
aspirin 325 mg Tablet
325 mg PO DAILY Qty: 0 0RF
Held
losartan 50 mg tablet
50 mg PO HS
Hold Instructions: hold until resumed by outpatient doctors
Discharge Orders:
Discharge Patient (As Directed); Ordered 02/26/25
Ordered By: Eden Wood
Discharge Date and Time
Discharge Date/Time: 02/26/25 13:06
Print Language: AMHARIC
--- NOTE | 2025-02-26 12:58 | CM ---
Alert awake oriented patient who lives with his Emma in a 2 story home with 0 step to enter and stair glide to bed and bathroom. He is independent in driving and in all activities of daily living.He was offered VN he declined need.His
will drive him home. MCDUFFIE letter explained to patient all questions answered.Pt did not sign MCDUFFIE.
He agrees with dc today.
Pt [facility] hx / No SNF history
Pharmacy [facility]
PCP DR Almeida
PLAN Home Declined VN
== END 2025-02-26 13:06 | disposition home or self-care (01) ==
LOC: 4 EAST ACU 17:29
PROVIDERS: Internal Medicine; Physician Assistant; Registered Nurse; ADMITTING PHYSICIAN Internal Medicine; ATTENDING PHYSICIAN Internal Medicine; EMERGENCY PHYSICIAN Emergency Medicine; FAMILY PHYSICIAN Family Medicine
DX: R53.1 Weakness (principal); M54.50 Low back pain, unspecified; I25.10 Atherosclerotic heart disease of native coronary artery without angina pectoris; I13.0 Hypertensive heart and chronic kidney disease with heart failure and stage 1 through stage 4 chronic kidney disease, or unspecified chronic kidney disease; N18.30 Chronic kidney disease, stage 3 unspecified; J84.10 Pulmonary fibrosis, unspecified; K21.9 Gastro-esophageal reflux disease without esophagitis; E11.22 Type 2 diabetes mellitus with diabetic chronic kidney disease; E78.5 Hyperlipidemia, unspecified; I50.32 Chronic diastolic (congestive) heart failure; E66.9 Obesity, unspecified; Z68.31 Body mass index [BMI] 31.0-31.9, adult; Z95.3 Presence of xenogenic heart valve; Z87.891 Personal history of nicotine dependence; Z79.899 Other long term (current) drug therapy; Z86.018 Personal history of other benign neoplasm; Z86.16 Personal history of COVID-19; Z79.82 Long term (current) use of aspirin; Z95.1 Presence of aortocoronary bypass graft
CPT/HCPCS: 70450; 72131; 76770; 80048; 80053; 81003; 81015; 82570; 82962; 83036; 84300; 85025; 94640; 97110; 97162; 97166; 99285; G0378

== ENCOUNTER 2025-04-10 08:15 | Outpatient (RCR) | payer MEDICARE, OTHER, SELFPAY | END 2025-04-10 23:59 | disposition home or self-care (01) | LOC: PURB 08:15 | PROVIDERS: ATTENDING PHYSICIAN Internal Medicine; FAMILY PHYSICIAN Family Medicine | DX: J84.112 Idiopathic pulmonary fibrosis (principal) | CPT/HCPCS: G0237; G0239 ==

== ENCOUNTER 2025-05-10 08:15 | Outpatient (RCR) | payer MEDICARE, OTHER, SELFPAY | END 2025-05-10 23:59 | disposition home or self-care (01) | LOC: PURB 08:15 | PROVIDERS: ATTENDING PHYSICIAN Internal Medicine; FAMILY PHYSICIAN Family Medicine | DX: J84.112 Idiopathic pulmonary fibrosis (principal) | CPT/HCPCS: G0239 ==

== ENCOUNTER → 2025-05-22 10:14 | Outpatient (REF) | payer MEDICARE, OTHER, SELFPAY | LOC: HWRAD 10:14 | PROVIDERS: ATTENDING PHYSICIAN Family Medicine | DX: D33.3 Benign neoplasm of cranial nerves (principal) | CPT/HCPCS: 70450 ==

== ENCOUNTER 2025-05-31 08:15 | Outpatient (RCR) | payer MEDICARE, OTHER, SELFPAY | END 2025-05-31 23:59 | disposition home or self-care (01) | LOC: PURB 08:15 | PROVIDERS: ATTENDING PHYSICIAN Internal Medicine; FAMILY PHYSICIAN Family Medicine | DX: J84.112 Idiopathic pulmonary fibrosis (principal) | CPT/HCPCS: G0239 ==

== ENCOUNTER 2025-06-28 08:15 | Outpatient (RCR) | payer MEDICARE, OTHER, SELFPAY | END 2025-06-28 23:59 | disposition home or self-care (01) | LOC: PURB 08:15 | PROVIDERS: ATTENDING PHYSICIAN Internal Medicine; FAMILY PHYSICIAN Family Medicine | DX: J84.112 Idiopathic pulmonary fibrosis (principal) | CPT/HCPCS: G0239 ==